=== PATIENT | female | born 1930 | race Caucasian/White ===

== ENCOUNTER 2018-01-02 18:07 | Inpatient (IN) | payer MEDICARE, OTHER ==
[2018-01-02] MEDS ORDERED: FENTANYL CITRATE INJ/PF 100 MCG/2 ML AMPUL IV PRN (18:30)
--- NOTE | 2018-01-02 18:55 | RADIOLOGY REPORT (SQ) ---
EXAM DESCRIPTION: FEMUR LEFT COMPLETED DATE/TIME: 01/02/2018 6:47 pm REASON FOR STUDY: fall COMPARISON: None. NUMBER OF VIEWS: Two views. TECHNIQUE: Two radiographic images acquired of the left femur to include hip and knee in at least on e projection. LIMITATIONS: None. FINDINGS: MINERALIZATION: Normal. BONES: Comminuted intertrochanteric fracture of the proximal femur with displacement and angulation. SOFT TISSUES: No obvious swelling or foreign body. OTHER: No other significant finding. IMPRESSION: COMMINUTED INTERTROCHANTERIC FRACTURE OF THE PROXIMAL FEMUR WITH DISPLACEMENT AND ANGULA TION TECHNICAL DOCUMENTATION: JOB ID: [id number] [employer]- All Rights Reserved Reading location - IP/workstation name: [email or web address]
--- NOTE | 2018-01-02 19:02 | ER Document Report ---
ED General - General Chief Complaint: Leg Injury Stated Complaint: FALL Time Seen by Provider: 01/02/18 18:29 Notes: Patient is an 87 year old female with a past medical history of atrial fibrillation status post pacemaker placement, chronic anticoagulation with warfarin who presents after a mechanical fall in which she fell on her left hip. Patient was apparently getting out of the vehicle after the family had arrived in the area for a vacation, stepped on a stone and fell to the ground. She did strike her head on a post while falling to the ground. She states immediately upon falling she developed a severe, constant, throbbing pain to her left hip. Any attempt at moving the hip or leg worsens the pain. She has received fentanyl with some improvement of the pain. No history of similar injury in the past. She has not had any focal weakness, numbness, vomiting or loss of consciousness since the fall. - Related Data Allergies/Adverse Reactions: No Known Allergies Allergy (Verified 01/02/18 21:28) Past Medical History - General Information source: Patient - Social History Smoking Status: Never Smoker Chew tobacco use (# tins/day): No Frequency of alcohol use: None Drug Abuse: None Lives with: Family Family History: Reviewed & Not Pertinent Patient has suicidal ideation: No Patient has homicidal ideation: No - Past Medical History Cardiac Medical History: Reports: Hx Atrial Fibrillation Renal/ Medical History: Denies: Hx Peritoneal Dialysis Past Surgical History: Reports: Hx Cardiac Surgery - pacemaker Review of Systems - Review of Systems Notes: Constitutional: Negative for fever. Eyes: Negative for visual changes. ENT: Negative for facial injury Cardiovascular: Negative for chest injury. Respiratory: Negative for shortness of breath. Gastrointestinal: Negative for abdominal injury. Genitourinary: Negative for genital injury Musculoskeletal: Positive for left lower extremity injury Skin: Negative for laceration/abrasions. Neurological: Positive for head injury. Physical Exam - Vital signs Vitals: Temp 97.9 F 01/02/18 18:22 Interpretation: Normal Notes: PHYSICAL EXAMINATION: GENERAL: Appears to be in pain but no acute distress HEAD: Atraumatic, normocephalic. EYES: Pupils equal round and reactive to light, extraocular movements intact, sclera anicteric, conjunctiva are normal. ENT: nares patent, no oral pharyngeal trauma. No hemotympanum, no Hollins's sign , no raccoon eyes. NECK: No midline cervical spine tenderness. Patient able to move their head to 45 bilaterally without any discomfort. LUNGS: Breath sounds clear to auscultation bilaterally and equal. No wheezes rales or rhonchi. HEART: Regular rate and rhythm without murmurs. CHEST WALL: No ecchymosis over the chest wall. ABDOMEN: Soft, nontender, normoactive bowel sounds. No guarding, no rebound. No abdominal bruising EXTREMITIES: Significant bruising and swelling to the lateral proximal aspect of the left femur region. There is exquisite pain on palpation of the area. Unable to perform hip range of motion testing due to pain on the left side. No additional extremity findings on exam with full range of motion throughout otherwise. BACK: No midline spinal tenderness, step-offs, or deformities. NEUROLOGICAL: Face symmetric. Tongue protrudes midline. Extraocular motions intact. Pupils are 2 mm and equally reactive. Normal speech, gait deferred. Sensation is grossly intact throughout. 5 out of 5 in the biceps and triceps bilaterally. Dorsi and plantar flexion 5 out of 5 bilaterally. PSYCH: Normal mood, normal affect. SKIN: Warm, Dry, normal turgor, bruising as above Course - Re-evaluation Re-evalutation: 01/02/18 18:59 Presentation of a well appearing elderly patient in no acute distress, vitals within normal limits after a mechanical fall. Patient denies a syncopal episode as the cause for today's fall. No focal neurologic deficits on exam, no evidence of basilar skull fracture on exam without evidence of hemotympanum, raccoon eyes, or periauricular hematoma. No papilledema. Patient is not on anticoagulation. GCS is 15. No loss of consciousness. No episodes of vomiting. However, based on patient's age a CT of the head has been obtained which is negative for any acute intracranial bleed. Likewise, patient was unable to be clinically cleared due to age by [place] cervical spine criteria. A CT of the cervical spine was also obtained and likewise is negative for any acute fracture. No indication for further imaging of the cervical spine. Patient has an obvious deformity and swelling of the left proximal femur and x- ray does show an intertrochanteric fracture with angulation and displacement which will require surgical repair. Chest and abdominal exam are benign without any focal tenderness, shortness of breath, or bruising over the chest or abdominal wall. Patient has no flank tenderness. Awaiting laboratories and then will discuss with the orthopedic surgeon and hospitalist for admission. 01/02/18 20:29 The remainder of extremity imaging unremarkable. Patient will be given oral vitamin K as she is anticoagulated on Coumadin. INR results are pending. I have discussed with Dr. Haley who requires the hospitalist to admit this patient. Dr. Goldstein has agreed. Patient and family updated on care plan and are agreeable. - Vital Signs Vital signs: Temp Pulse Resp BP Pulse Ox 98.0 F 70 16 126/71 H 98 01/02/18 22:42 01/03/18 02:00 01/02/18 22:42 01/02/18 22:42 01/02/18 22:42 - Laboratory Result Diagrams: 01/03/18 02:29 01/03/18 02:29 Laboratory results interpreted by me: 01/02/18 01/02/18 01/02/18 19:02 19:02 19:20 RBC 3.55 L Hgb 11.6 L Hct 33.5 L Plt Count 137 L Seg Neutrophils % 79.3 H Lymphocytes % 12.1 L PT 22.7 H BUN 27 H Glucose 122 H - Diagnostic Test Radiology reviewed: Image reviewed, Reports reviewed Radiology results interpreted by me: 01/02/18 19:02 Left femur: Intertrochanteric fracture with angulation and displacement - EKG Interpretation by Me Additional EKG results interpreted by me: 01/03/18 03:29 Atrially sensed ventricularly paced rhythm, rate 70 Discharge - Discharge Clinical Impression: Warfarin anticoagulation Fracture, intertrochanteric, left femur Qualifiers: Encounter type: initial encounter Fracture type: closed Fracture alignment: displaced Qualified Code(s): S72.142A - Displaced intertrochanteric fracture of left femur, initial encounter for closed fracture Fall Qualifiers: Encounter type: initial encounter Qualified Code(s): W19.XXXA - Unspecified fall, initial encounter Atrial fibrillation Qualifiers: Atrial fibrillation type: chronic Qualified Code(s): I48.2 - Chronic atrial fibrillation Condition: Fair Disposition: ADMITTED INPATIENT Admitting Provider: Hospitalist Unit Admitted: Telemetry
[2018-01-02 19:17] LABS: ABSOLUTE BASOPHILS # (AUTO) 0.1 10^3/uL (0.0-0.2); ABSOLUTE EOSINOPHILS # (AUTO) 0.1 10^3/uL (0.0-0.6); ABSOLUTE LYMPHOCYTES (AUTO) 1.1 10^3/uL (0.5-4.7); ABSOLUTE MONOCYTES (AUTO) 0.6 10^3/uL (0.1-1.4); BASOPHILS % (AUTO) 0.7 % (0-2); HEMATOCRIT 33.5 % (36.0-47.0); HEMOGLOBIN 11.6 g/dL (12.0-15.5); LYMPHOCYTES % (AUTO) 12.1 % (13-45); MEAN CORPUSCULAR HEMOGLOBIN 32.5 pg (27.0-33.4); MEAN CORPUSCULAR HGB CONC 34.5 g/dL (32.0-36.0); MEAN CORPUSCULAR VOLUME 94 fl (80-97); MONOCYTES % (AUTO) 6.9 % (3-13); PLATELET COUNT 137 10^3/uL (150-450); RED BLOOD COUNT 3.55 10^6/uL (3.72-5.28); RED CELL DISTRIBUTION WIDTH 13.5 % (11.5-14.0); SEGMENTED NEUTROPHILS % (AUTO) 79.3 % (42-78); TOTAL CELLS COUNTED % (AUTO) 100 %; WHITE BLOOD COUNT 8.9 10^3/uL (4.0-10.5)
[2018-01-02 19:35] LABS: ANION GAP 9 (5-19); BLOOD UREA NITROGEN 27 mg/dL (7-20); CALCIUM 9.1 mg/dL (8.4-10.2); CARBON DIOXIDE 28 mmol/L (22-30); CHLORIDE 104 mmol/L (98-107); GLUCOSE 122 mg/dL (75-110); POTASSIUM 4.5 mmol/L (3.6-5.0); SODIUM 140.7 mmol/L (137-145)
--- NOTE | 2018-01-02 19:52 | RADIOLOGY REPORT (SQ) ---
EXAM DESCRIPTION: CT HEAD WITHOUT COMPLETED DATE/TIME: 01/02/2018 7:21 pm REASON FOR STUDY: fall, trauma COMPARISON: None. TECHNIQUE: Axial images acquired through the brain without intravenous contrast. Images reviewed wi th bone, brain and subdural windows. Images stored on PACS. All CT scanners at this facility use dose modulation, iterative reconstruction, and/or weight based d osing when appropriate to reduce radiation dose to as low as reasonably achievable (ALARA). [facility]: Dose Right [facility]: CareDose [facility]: Dose Right [facility]: Teradose 4D [facility]: Smart [employer] RADIATION DOSE: CT Rad equipment meets quality standard of care and radiation dose reduction techniq ues were employed. CTDIvol: 53.2 mGy. DLP: 1044 mGy-cm. mGy. LIMITATIONS: None. FINDINGS: VENTRICLES: Normal size and contour. CEREBRUM: No mass effect. No hemorrhage. No midline shift. Normal liu/white matter differentiatio n. No evidence for acute territorial infarction. CEREBELLUM: No mass effect. No hemorrhage. No alteration of density. No evidence for acute infarct ion. EXTRAAXIAL SPACES: No fluid collections. ORBITS AND GLOBE: Symmetrical contour of the globes. CALVARIUM: No depressed skull fracture. PARANASAL SINUSES: No air-fluid level. SOFT TISSUES: No hematoma. IMPRESSION: No acute intracranial hemorrhage or depressed calvarial fracture. EVIDENCE OF ACUTE STROKE: NO. COMMENT: Quality ID # [id number]: Final reports with documentation of one or more dose reduction techniques (e.g., Automated exposure control, adjustment of the mA and/or kV according to patient size, use of iterative reconstruction technique) TECHNICAL DOCUMENTATION: JOB ID: [id number] 2010 [employer]- All Rights Reserved Reading location - IP/workstation name: [email or web address]
--- NOTE | 2018-01-02 20:02 | RADIOLOGY REPORT (SQ) ---
EXAM DESCRIPTION: CT CERVICAL SPINE WITHOUT COMPLETED DATE/TIME: 01/02/2018 7:21 pm REASON FOR STUDY: fall, trauma COMPARISON: None. TECHNIQUE: Axial images acquired through the cervical spine without intravenous contrast. Images re viewed with lung, soft tissue and bone windows. Reconstructed coronal and sagittal MPR images review ed. Images stored on PACS. All CT scanners at this facility use dose modulation, iterative reconstruction, and/or weight based d osing when appropriate to reduce radiation dose to as low as reasonably achievable (ALARA). [facility]: Dose Right [facility]: CareDose [facility]: Dose Right [facility]: Teradose 4D [facility]: Smart [employer] RADIATION DOSE: CT Rad equipment meets quality standard of care and radiation dose reduction techniq ues were employed. CTDIvol: 12.0 mGy. DLP: 240 mGy-cm. mGy. LIMITATIONS: None. FINDINGS: ALIGNMENT: There is mild retrolisthesis of C3 on C4 and of C4 on C5. MINERALIZATION: Normal. VERTEBRAL BODIES: No fractures or dislocation. DISCS: Multilevel disc space narrowing with osteophytes. FACETS, LATERAL MASSES, POSTERIOR ELEMENTS: Facet arthropathy. No fractures. No dislocation. No ac alison findings. HARDWARE: None in the spine. VISUALIZED RIBS: No fractures. LUNG APICES AND SOFT TISSUES: No acute findings. There is a 1.4 cm hypodense nodule at the left lobe of the thyroid gland. There is a 7 mm calcification at the left lobe of the thyroid gland. IMPRESSION: 1. No acute fracture at the thoracic cervical spine. Multilevel degenerative changes. 2. A 1.4 cm hypodense nodule at the left lobe of the thyroid gland. This can be better evaluated [facility] dedicated ultrasound. TECHNICAL DOCUMENTATION: JOB ID: [id number] Quality ID # [id number]: Final reports with documentation of one or more dose reduction techniques (e.g., Au tomated exposure control, adjustment of the mA and/or kV according to patient size, use of iterative reconstruction technique) 2010 [employer]- All Rights Reserved Reading location - IP/workstation name: [email or web address]
[2018-01-02] MEDS ORDERED: PHYTONADIONE 5 MG TABLET PO ONE (20:26)
--- NOTE | 2018-01-02 20:26 | RADIOLOGY REPORT (SQ) ---
EXAM DESCRIPTION: PELVIS AP COMPLETED DATE/TIME: 01/02/2018 7:22 pm REASON FOR STUDY: fall, trauma COMPARISON: Left femur x-ray 01/02/2018. NUMBER OF VIEWS: One view TECHNIQUE: AP Pelvis LIMITATIONS: None. FINDINGS: There is diffuse osteopenia. Redemonstration of displaced, comminuted, intertrochanteric fracture of the proximal left femur with varus angulation. Severe degenerative changes are seen at t he right hip with loss of joint space and subchondral sclerosis. The pelvic ring is partially obscur ed by overlying bowel loops, appears intact. IMPRESSION: Displaced, intertrochanteric fracture of the proximal left femur. Severe degenerative c hanges at the right hip. Osteopenia. TECHNICAL DOCUMENTATION: JOB ID: [id number] 2010 [employer]- All Rights Reserved Reading location - IP/workstation name: [email or web address]
[2018-01-02] MEDS ORDERED: MAGNESIUM HYDROXIDE SUSP 30 ML UDCUP PO PRN (20:28)
[2018-01-02] MEDS ORDERED: MAG HYDROX/AL HYDROX/SIMETH SUSP 30 ML UDCUP PO PRN (20:28)
[2018-01-02] MEDS ORDERED: IPRATROPIUM/ALBUTEROL 0.5-2.5 MG/3 ML AMPUL NEB PRN (20:28)
--- NOTE | 2018-01-02 20:31 | RADIOLOGY REPORT (SQ) ---
EXAM DESCRIPTION: CHEST SINGLE VIEW COMPLETED DATE/TIME: 01/02/2018 7:32 pm REASON FOR STUDY: pre-op. Intertrochanteric fracture at the proximal left femur. COMPARISON: None. EXAM PARAMETERS: NUMBER OF VIEWS: One view. TECHNIQUE: Single frontal radiographic view of the chest acquired. RADIATION DOSE: NA LIMITATIONS: None. FINDINGS: LUNGS AND PLEURA: No consolidation, pleural effusion or pneumothorax. Hyperlucent lungs a re suggestive of emphysema. MEDIASTINUM AND HILAR STRUCTURES: No masses. Contour normal. HEART AND VASCULAR STRUCTURES: The heart is enlarged. There is no overt vascular congestion. BONES: No acute findings. HARDWARE: There is a right-sided pacemaker. IMPRESSION: Cardiomegaly. Emphysema. No consolidation or pleural effusion. TECHNICAL DOCUMENTATION: JOB ID: [id number] 2010 [employer]- All Rights Reserved Reading location - IP/workstation name: [email or web address]
[2018-01-02 20:56] LABS: PROTHROMBIN TIME 22.7 SEC (11.4-15.4)
[2018-01-02 21:32] LABS: CREATINE KINASE MB 0.86 ng/mL (<4.55)
[2018-01-02 21:37] LABS: TROPONIN I < 0.012 ng/mL
[2018-01-02] MEDS: NORMAL SALINE 1000 ML 1,000 ML IV PRN ×2 (21:44→22:57)
[2018-01-02] MEDS: FENTANYL CITRATE INJ/PF 100 MCG/2 ML AMPUL IV PRN (22:57)
[2018-01-02] MEDS: HEPARIN SOD (PORCINE) 5,000 UNIT/ML 1 ML SYRINGE SUBCUT SCH (22:58)
[2018-01-03 02:40] LABS: ABSOLUTE LYMPHOCYTES (AUTO) 0.9 10^3/uL (0.5-4.7); ABSOLUTE MONOCYTES (AUTO) 0.6 10^3/uL (0.1-1.4); ABSOLUTE NEUT (AUTO) 6.6 10^3/uL (1.7-8.2); BASOPHILS % (AUTO) 0.5 % (0-2); EOSINOPHILS % (AUTO) 0.1 % (0-6); HEMATOCRIT 29.2 % (36.0-47.0); LYMPHOCYTES % (AUTO) 11.4 % (13-45); MEAN CORPUSCULAR HGB CONC 34.1 g/dL (32.0-36.0); MEAN CORPUSCULAR VOLUME 94 fl (80-97); MONOCYTES % (AUTO) 7.3 % (3-13); PLATELET COUNT 115 10^3/uL (150-450); RED BLOOD COUNT 3.11 10^6/uL (3.72-5.28); SEGMENTED NEUTROPHILS % (AUTO) 80.7 % (42-78); TOTAL CELLS COUNTED % (AUTO) 100 %; WHITE BLOOD COUNT 8.2 10^3/uL (4.0-10.5)
[2018-01-03 03:13] LABS: ANION GAP 6 (5-19); BLOOD UREA NITROGEN 23 mg/dL (7-20); CALCIUM 8.3 mg/dL (8.4-10.2); CARBON DIOXIDE 28 mmol/L (22-30); CHLORIDE 105 mmol/L (98-107); GLUCOSE 135 mg/dL (75-110); POTASSIUM 4.5 mmol/L (3.6-5.0); SODIUM 138.6 mmol/L (137-145)
[2018-01-03] MEDS: FENTANYL CITRATE INJ/PF 100 MCG/2 ML AMPUL IV PRN ×8 (03:22→21:35)
[2018-01-03 03:23] LABS: CREATINE KINASE MB 0.65 ng/mL (<4.55)
[2018-01-03] MEDS: NORMAL SALINE 1000 ML 1,000 ML IV PRN (03:24)
[2018-01-03 03:28] LABS: TROPONIN I < 0.012 ng/mL
--- NOTE | 2018-01-03 04:52 | PDOC H&P ---
History of Present Illness Admission Date/PCP: 01/02/18 20:46 Patient complains of: Left hip pain History of Present Illness: ROSALBA DE LEON is a 87 year old female with past medical history of osteoarthritis, atrial fibrillation status post pacemaker placement on Coumadin. She presents after a mechanical fall to her left hip resulting in intractable pain and deformity. Patient did lightly strike her head against a post during her fall. No loss of consciousness, nausea or vomiting, dizziness, blurred vision or confusion. She denies recent illness, medication changes and otherwise feels well. She ambulates 2 miles per day, dozens of flights of stairs per day and not limited by shortness of breath or chest pain. Past Medical History Cardiac Medical History: Reports: Atrial Fibrillation Pulmonary Medical History: Reports: None EENT Medical History: Reports: None Neurological Medical History: Reports: None Endocrine Medical History: Reports: None Renal/ Medical History: Reports: None Malignancy Medical History: Reports: None GI Medical History: Reports: None Musculoskeltal Medical History: Reports: Arthritis Skin Medical History: Reports: None Psychiatric Medical History: Reports: None Traumatic Medical History: Reports: None Hematology: Reports: None Infectious Medical History: Reports: None Past Surgical History Past Surgical History: Reports: None Social History Information Source: Patient, [facility] Records Lives with: Family Smoking Status: Never Smoker Frequency of Alcohol Use: None Hx Recreational Drug Use: No Drugs: None Hx Prescription Drug Abuse: No - Advance Directive Resuscitation Status: Full Code Family History Family History: None Parental Family History Reviewed: Yes Children Family History Reviewed: Yes Sibling(s) Family History Reviewed.: Yes Medication/Allergy Home Medications: Amiodarone HCl [Cordarone 200 mg Tablet] 200 mg PO QHS 01/02/18 Carvedilol [Coreg 6.25 mg Tablet] 6.25 mg PO Q12 01/02/18 Lisinopril [Prinivil 2.5 mg Tablet] 2.5 mg PO DAILY 01/02/18 Tolterodine Tartrate [Detrol LA] 2 mg PO QHS 01/02/18 Warfarin Sodium 2 mg PO ASDIR 01/02/18 Allergies/Adverse Reactions: No Known Allergies Allergy (Verified 01/02/18 21:28) Review of Systems Constitutional: ABSENT: chills, fever(s), headache(s), weight gain, weight loss Eyes: ABSENT: visual disturbances Ears: ABSENT: hearing changes Cardiovascular: ABSENT: chest pain, dyspnea on exertion, edema, orthropnea, palpitations Respiratory: ABSENT: cough, hemoptysis Gastrointestinal: ABSENT: abdominal pain, constipation, diarrhea, hematemesis, hematochezia, nausea, vomiting Genitourinary: ABSENT: dysuria, hematuria Musculoskeletal: ABSENT: joint swelling Integumentary: ABSENT: rash, wounds Neurological: ABSENT: abnormal gait, abnormal speech, confusion, dizziness, focal weakness, syncope Psychiatric: ABSENT: anxiety, depression, homidical ideation, suicidal ideation Endocrine: ABSENT: cold intolerance, heat intolerance, polydipsia, polyuria Hematologic/Lymphatic: ABSENT: easy bleeding, easy bruising Physical Exam Vital Signs: Temp Pulse Resp BP Pulse Ox 97.8 F 73 16 105/47 L 95 01/03/18 03:44 01/03/18 03:44 01/03/18 03:44 01/03/18 03:44 01/03/18 03:44 Intake & Output 01/01/18 01/02/18 01/03/18 11:59 11:59 11:59 Output Total 0 Balance 0 Weight 66.4 kg General appearance: PRESENT: cooperative, mild distress. ABSENT: disheveled, hard of hearing Head exam: PRESENT: atraumatic, normocephalic Eye exam: PRESENT: conjunctiva pink, EOMI, PERRLA. ABSENT: scleral icterus Ear exam: PRESENT: normal external ear exam Mouth exam: PRESENT: moist, tongue midline Neck exam: ABSENT: carotid bruit, JVD, lymphadenopathy, thyromegaly Respiratory exam: PRESENT: clear to auscultation vika. ABSENT: rales, rhonchi, wheezes Cardiovascular exam: PRESENT: systolic murmur - Known to patient, other - Paced rhythm. ABSENT: clicks, diastolic murmur, gallop Pulses: PRESENT: normal dorsalis pedis pul Vascular exam: PRESENT: normal capillary refill GI/Abdominal exam: PRESENT: normal bowel sounds, soft. ABSENT: distended, guarding, mass, organolmegaly, rebound, tenderness Rectal exam: PRESENT: deferred Extremities exam: PRESENT: tenderness, other - Left leg externally rotated and short. ABSENT: calf tenderness, full ROM, +1 edema Neurological exam: PRESENT: alert, awake, oriented to person, oriented to place , oriented to time, oriented to situation, CN II-XII grossly intact. ABSENT: motor sensory deficit Psychiatric exam: PRESENT: appropriate affect, normal mood. ABSENT: homicidal ideation, suicidal ideation Skin exam: PRESENT: dry, intact, warm. ABSENT: cyanosis, rash Results Laboratory Results: 01/03/18 02:29 01/03/18 02:29 01/03/18 01/03/18 02:29 02:29 WBC 8.2 RBC 3.11 L Hgb 10.0 L Hct 29.2 L MCV 94 MCH 32.0 MCHC 34.1 RDW 13.0 Plt Count 115 L Seg Neutrophils % 80.7 H Lymphocytes % 11.4 L Monocytes % 7.3 Eosinophils % 0.1 Basophils % 0.5 Absolute Neutrophils 6.6 Absolute Lymphocytes 0.9 Absolute Monocytes 0.6 Absolute Eosinophils 0.0 Absolute Basophils 0.0 Sodium 138.6 Potassium 4.5 Chloride 105 Carbon Dioxide 28 Anion Gap 6 BUN 23 H Creatinine 0.68 Est GFR ( Amer) > 60 Est GFR (Non-Af Amer) > 60 Glucose 135 H Calcium 8.3 L 01/03/18 01/03/18 02:29 02:29 Creatine Kinase 49 CK-MB (CK-2) 0.65 Troponin I < 0.012 Impressions: Femur X-Ray 01/02/18 18:13 IMPRESSION: COMMINUTED INTERTROCHANTERIC FRACTURE OF THE PROXIMAL FEMUR WITH DISPLACEMENT AND ANGULATION Cervical Spine CT 01/02/18 18:57 IMPRESSION: 1. No acute fracture at the thoracic cervical spine. Multilevel degenerative changes. 2. A 1.4 cm hypodense nodule at the left lobe of the thyroid gland. This can be better evaluated with dedicated ultrasound. Head CT 01/02/18 18:57 IMPRESSION: No acute intracranial hemorrhage or depressed calvarial fracture. EVIDENCE OF ACUTE STROKE: NO. Pelvis X-Ray 01/02/18 18:57 IMPRESSION: Displaced, intertrochanteric fracture of the proximal left femur. Severe degenerative changes at the right hip. Osteopenia. Chest X-Ray 01/02/18 19:26 IMPRESSION: Cardiomegaly. Emphysema. No consolidation or pleural effusion. Assessment & Plan - Diagnosis (1) Atrial fibrillation Qualifiers: Atrial fibrillation type: chronic Qualified Code(s): I48.2 - Chronic atrial fibrillation Is this a current diagnosis for this admission?: Yes Plan: Paced rhythm, continue amiodarone, hold anticoagulation for surgery. (2) Fall Qualifiers: Encounter type: initial encounter Qualified Code(s): W19.XXXA - Unspecified fall, initial encounter Is this a current diagnosis for this admission?: Yes Plan: Mechanical fall stepping up on unstable ground. (3) Fracture, intertrochanteric, left femur Qualifiers: Encounter type: initial encounter Fracture type: closed Fracture alignment: displaced Qualified Code(s): S72.142A - Displaced intertrochanteric fracture of left femur, initial encounter for closed fracture Is this a current diagnosis for this admission?: Yes Plan: Minimal risk for cardiopulmonary complication of orthopedic surgery given outstanding underlying fitness. No modifiable risk factors. (4) Warfarin anticoagulation Is this a current diagnosis for this admission?: Yes Plan: Subtherapeutic INR 1.9 patient has received vitamin K in the emergency room, follow-up a.m. INR. - Time Time Spent: 50 to 70 Minutes - Inpatient Certification Medical Necessity: Need Close Monitoring Due to Risk of Patient Decompensation
[2018-01-03] MEDS: HEPARIN SOD (PORCINE) 5,000 UNIT/ML 1 ML SYRINGE SUBCUT SCH ×3 (05:50→21:25)
--- NOTE | 2018-01-03 07:14 | PDOC CONSULTATION ---
Consultation Consult Date: 01/03/18 Consult reason:: Left hip fracture History of Present Illness Admission Date/PCP: 01/02/18 20:46 History of Present Illness: ROSALBA DE LEON is a 87 year old female The patient is an 87-year-old white female with past medical history notable for atrial fibrillation and chronic anticoagulation who fell yesterday and sustained a left hip injury. She is unable to ambulate. She is brought to the emergency room. X-rays in the emergency room demonstrate a displaced left intratrochanteric femur fracture. Past Medical History Cardiac Medical History: Reports: Atrial Fibrillation Pulmonary Medical History: Reports: None EENT Medical History: Reports: None Neurological Medical History: Reports: None Endocrine Medical History: Reports: None Renal/ Medical History: Reports: None Malignancy Medical History: Reports: None GI Medical History: Reports: None Musculoskeltal Medical History: Reports: Arthritis Skin Medical History: Reports: None Psychiatric Medical History: Reports: None Traumatic Medical History: Reports: None Hematology: Reports: None Infectious Medical History: Reports: None Past Surgical History Past Surgical History: Reports: None Social History Information Source: Patient, [facility] Records Lives with: Family Smoking Status: Never Smoker Frequency of Alcohol Use: None Hx Recreational Drug Use: No Drugs: None Hx Prescription Drug Abuse: No - Advance Directive Resuscitation Status: Full Code Family History Family History: None Parental Family History Reviewed: No Children Family History Reviewed: No Sibling(s) Family History Reviewed.: No Medication/Allergy Home Medications: Amiodarone HCl [Cordarone 200 mg Tablet] 200 mg PO QHS 01/02/18 Carvedilol [Coreg 6.25 mg Tablet] 6.25 mg PO Q12 01/02/18 Lisinopril [Prinivil 2.5 mg Tablet] 2.5 mg PO DAILY 01/02/18 Tolterodine Tartrate [Detrol LA] 2 mg PO QHS 01/02/18 Warfarin Sodium 2 mg PO ASDIR 01/02/18 Allergies/Adverse Reactions: No Known Allergies Allergy (Verified 01/02/18 21:28) Review of Systems All systems: as per [facility] Physical Exam Vital Signs: Temp Pulse Resp BP Pulse Ox 36.6 C 73 16 105/47 L 95 01/03/18 03:44 01/03/18 03:44 01/03/18 03:44 01/03/18 03:44 01/03/18 03:44 Intake & Output 01/02/18 01/03/18 01/04/18 06:59 06:59 06:59 Intake Total 1064 Output Total 200 Balance 864 Weight 66.4 kg Physical Exam: The patient is an elderly somewhat frail-appearing white female lying in hospital bed. She is alert oriented and appropriate. General appearance: PRESENT: no acute distress, mild distress Head exam: PRESENT: normocephalic Respiratory exam: PRESENT: unlabored Cardiovascular exam: PRESENT: RRR Pulses: PRESENT: +1 pedal pulses bilateral Vascular exam: PRESENT: normal capillary refill GI/Abdominal exam: PRESENT: soft Rectal exam: PRESENT: deferred Extremities exam: PRESENT: other - Left lower extremity ecchymosis. Leg length inequality. Rotational deformity. Brisk capillary refill. Sensory examination is intact to light touch. Neurological exam: PRESENT: alert, awake, oriented to person, oriented to place , oriented to time, oriented to situation. ABSENT: motor sensory deficit Psychiatric exam: PRESENT: appropriate affect, normal mood. ABSENT: homicidal ideation, suicidal ideation Skin exam: PRESENT: dry, intact, warm. ABSENT: cyanosis, rash Results Laboratory Results: 01/03/18 02:29 01/03/18 02:29 01/03/18 01/03/18 02:29 02:29 WBC 8.2 RBC 3.11 L Hgb 10.0 L Hct 29.2 L MCV 94 MCH 32.0 MCHC 34.1 RDW 13.0 Plt Count 115 L Seg Neutrophils % 80.7 H Lymphocytes % 11.4 L Monocytes % 7.3 Eosinophils % 0.1 Basophils % 0.5 Absolute Neutrophils 6.6 Absolute Lymphocytes 0.9 Absolute Monocytes 0.6 Absolute Eosinophils 0.0 Absolute Basophils 0.0 Sodium 138.6 Potassium 4.5 Chloride 105 Carbon Dioxide 28 Anion Gap 6 BUN 23 H Creatinine 0.68 Est GFR ( Amer) > 60 Est GFR (Non-Af Amer) > 60 Glucose 135 H Calcium 8.3 L 01/03/18 01/03/18 02:29 02:29 Creatine Kinase 49 CK-MB (CK-2) 0.65 Troponin I < 0.012 Impressions: Femur X-Ray 01/02/18 18:13 IMPRESSION: COMMINUTED INTERTROCHANTERIC FRACTURE OF THE PROXIMAL FEMUR WITH DISPLACEMENT AND ANGULATION Cervical Spine CT 01/02/18 18:57 IMPRESSION: 1. No acute fracture at the thoracic cervical spine. Multilevel degenerative changes. 2. A 1.4 cm hypodense nodule at the left lobe of the thyroid gland. This can be better evaluated with dedicated ultrasound. Head CT 01/02/18 18:57 IMPRESSION: No acute intracranial hemorrhage or depressed calvarial fracture. EVIDENCE OF ACUTE STROKE: NO. Pelvis X-Ray 01/02/18 18:57 IMPRESSION: Displaced, intertrochanteric fracture of the proximal left femur. Severe degenerative changes at the right hip. Osteopenia. Chest X-Ray 01/02/18 19:26 IMPRESSION: Cardiomegaly. Emphysema. No consolidation or pleural effusion. Status: Imported from PACS Assessment & Plan - Diagnosis (1) Atrial fibrillation Qualifiers: Atrial fibrillation type: chronic Qualified Code(s): I48.2 - Chronic atrial fibrillation Is this a current diagnosis for this admission?: Yes Plan: Patient on chronic anticoagulation. She received vitamin K yesterday in the emergency room. Most recent INR is 1.9. This will be repeated today. (2) Fracture, intertrochanteric, left femur Qualifiers: Encounter type: initial encounter Fracture type: closed Fracture alignment: displaced Qualified Code(s): S72.142A - Displaced intertrochanteric fracture of left femur, initial encounter for closed fracture Is this a current diagnosis for this admission?: Yes Plan: Patient would best served with an open reduction internal fixation of the left intratrochanteric femur fracture under regional anesthetic. Induction of her regional regional anesthetic will require improvement in her INR at least below 1.5. The surgery itself will take approximately 30 minutes with 100 cc blood loss. The patient can be weightbearing as tolerated postop. We will proceed with the surgical intervention pending medical clearance, correction of anticoagulation, and or availability. - Time Time Spent: 50 to 70 Minutes Anticipated discharge: SNF Within: Other
[2018-01-03 08:46] LABS: INTERNATIONAL RATION (INR) 1.84; PROTHROMBIN TIME 22.2 SEC (11.4-15.4)
[2018-01-03 08:47] LABS: PARTIAL THROMBOPLASTIN TIME 34.8 SEC (23.5-35.8)
[2018-01-03 09:06] LABS: CREATINE KINASE MB 0.57 ng/mL (<4.55)
[2018-01-03 09:08] LABS: TROPONIN I < 0.012 ng/mL
[2018-01-03] MEDS: RINGERS SOLUTION,LACTATED 1,000 ML IV PRN ×2 (09:11→18:27)
[2018-01-03] MEDS: DOCUSATE SODIUM 100 MG CAPSULE PO SCH ×2 (09:11→17:13)
--- NOTE | 2018-01-03 09:57 | EKG REPORT ---
SEVERITY:- ABNORMAL ECG - A-V DUAL-PACED RHYTHM WITH SOME INHIBITION : Confirmed by: Will Mantilla 03-Jan-2018 09:56:12
[2018-01-03] MEDS ORDERED: LIDOCAINE 4% TOPICAL SOLN 50 ML TP ONE (15:00)
--- NOTE | 2018-01-03 17:21 | PDOC PROGRESS REPORT ---
Subjective Progress Note for:: 01/03/18 Subjective:: The patient is an 87-year-old female with a past medical history significant for arthritis, atrial fibrillation status post pacemaker placement on Coumadin who was admitted on 01/02/18 for left hip fracture secondary to mechanical fall. Patient is seen on morning rounds. She is found resting in bed comfortably on room air with her family present. She states that her pain has been well controlled today. She does note that she has some tenderness to her left thumb , however, she has full range of motion and there is no deformity, ecchymosis, edema. She asks for cream to assist with her discomfort here. She denies headache, dizziness, chest pain, palpitations, dyspnea, abdominal pain, nausea vomiting diarrhea. She is hopeful that her INR will be corrected well enough for her to have her hip repaired tomorrow. She also asks about the possibility for discharge to acute rehabilitation facility located in [facility]. She is advised to discuss this with the orthopedic team and discharge planners. They have no other questions or concerns at this time. Reason For Visit: HIP FRACTURE, AFIB Physical Exam Vital Signs: Temp Pulse Resp BP Pulse Ox 99 F 91 12 95/43 L 99 01/03/18 16:00 01/03/18 16:19 01/03/18 16:19 01/03/18 16:00 01/03/18 16:19 Intake & Output 01/02/18 01/03/18 01/04/18 06:59 06:59 06:59 Intake Total 1064 Output Total 200 Balance 864 Weight 66.4 kg General appearance: PRESENT: no acute distress, cooperative, well-developed, well-nourished Head exam: PRESENT: atraumatic, normocephalic Eye exam: PRESENT: conjunctiva pink, EOMI, PERRLA. ABSENT: scleral icterus Ear exam: PRESENT: normal external ear exam Mouth exam: PRESENT: moist, tongue midline Neck exam: ABSENT: carotid bruit, JVD, lymphadenopathy, thyromegaly Respiratory exam: PRESENT: clear to auscultation vika, symmetrical, unlabored. ABSENT: rales, rhonchi, wheezes Cardiovascular exam: PRESENT: irregular rhythm, +S1, +S2. ABSENT: diastolic murmur, rubs, systolic murmur Pulses: PRESENT: normal dorsalis pedis pul Vascular exam: PRESENT: normal capillary refill GI/Abdominal exam: PRESENT: normal bowel sounds, soft. ABSENT: distended, guarding, mass, organolmegaly, rebound, tenderness Rectal exam: PRESENT: deferred Extremities exam: PRESENT: other - Tenderness and limited range of motion LLE. ABSENT: calf tenderness, clubbing, full ROM, pedal edema Neurological exam: PRESENT: alert, awake, oriented to person, oriented to place , oriented to time, oriented to situation, CN II-XII grossly intact. ABSENT: motor sensory deficit Psychiatric exam: PRESENT: appropriate affect, normal mood. ABSENT: homicidal ideation, suicidal ideation Skin exam: PRESENT: dry, intact, warm. ABSENT: cyanosis, rash Results Laboratory Results: 01/03/18 02:29 01/03/18 02:29 01/03/18 01/03/18 02:29 02:29 WBC 8.2 RBC 3.11 L Hgb 10.0 L Hct 29.2 L MCV 94 MCH 32.0 MCHC 34.1 RDW 13.0 Plt Count 115 L Seg Neutrophils % 80.7 H Lymphocytes % 11.4 L Monocytes % 7.3 Eosinophils % 0.1 Basophils % 0.5 Absolute Neutrophils 6.6 Absolute Lymphocytes 0.9 Absolute Monocytes 0.6 Absolute Eosinophils 0.0 Absolute Basophils 0.0 Sodium 138.6 Potassium 4.5 Chloride 105 Carbon Dioxide 28 Anion Gap 6 BUN 23 H Creatinine 0.68 Est GFR ( Amer) > 60 Est GFR (Non-Af Amer) > 60 Glucose 135 H Calcium 8.3 L 01/03/18 01/03/18 01/03/18 02:29 02:29 08:00 Creatine Kinase 49 49 CK-MB (CK-2) 0.65 Troponin I < 0.012 01/03/18 08:00 Creatine Kinase CK-MB (CK-2) 0.57 Troponin I < 0.012 Impressions: Femur X-Ray 01/02/18 18:13 IMPRESSION: COMMINUTED INTERTROCHANTERIC FRACTURE OF THE PROXIMAL FEMUR WITH DISPLACEMENT AND ANGULATION Cervical Spine CT 01/02/18 18:57 IMPRESSION: 1. No acute fracture at the thoracic cervical spine. Multilevel degenerative changes. 2. A 1.4 cm hypodense nodule at the left lobe of the thyroid gland. This can be better evaluated with dedicated ultrasound. Head CT 01/02/18 18:57 IMPRESSION: No acute intracranial hemorrhage or depressed calvarial fracture. EVIDENCE OF ACUTE STROKE: NO. Pelvis X-Ray 01/02/18 18:57 IMPRESSION: Displaced, intertrochanteric fracture of the proximal left femur. Severe degenerative changes at the right hip. Osteopenia. Chest X-Ray 01/02/18 19:26 IMPRESSION: Cardiomegaly. Emphysema. No consolidation or pleural effusion. Assessment & Plan - Diagnosis (1) Fracture, intertrochanteric, left femur Qualifiers: Encounter type: initial encounter Fracture type: closed Fracture alignment: displaced Qualified Code(s): S72.142A - Displaced intertrochanteric fracture of left femur, initial encounter for closed fracture Is this a current diagnosis for this admission?: Yes Plan: Left femur fracture status post mechanical fall. Minimal risk for cardiopulmonary complications of orthopedic surgery given the patient's underlying fitness (reports that she ambulate 2 miles daily). Trending PT/INR; goal for INR of less than 1.4 prior to surgery. Orthopedics has been consulted; appreciate their assistance. Anticipate INR will be corrected after the patient to proceed to the OR tomorrow. Pain is well-controlled with as needed Tylenol and IV fentanyl. Antiemetics as needed. PT/OT at orthopedics discretion. Discharge planning has been consulted; anticipate need for acute rehabilitation at discharge. (2) Atrial fibrillation Qualifiers: Atrial fibrillation type: chronic Qualified Code(s): I48.2 - Chronic atrial fibrillation Is this a current diagnosis for this admission?: Yes Plan: Paced and rate controlled rhythm. Patient's home medications reviewed with the exception of Coumadin. (3) Warfarin anticoagulation Is this a current diagnosis for this admission?: Yes Plan: On arrival, the patient's INR was subtherapeutic at 1.9. She received vitamin K 5 mg p.o. in the emergency department. INR minimally improved today; 1.8. Patient is encouraged to eat green leafy vegetables (patient reports that she enjoys spinach, collards) at dinner. Will continue to trend. (4) Fall Qualifiers: Encounter type: initial encounter Qualified Code(s): W19.XXXA - Unspecified fall, initial encounter Is this a current diagnosis for this admission?: Yes Plan: Mechanical fall secondary to stepping on unstable ground. Primary plan as above. - Time Time Spent with patient: 15-24 minutes Medications reviewed and adjusted accordingly: Yes Anticipated discharge: Acute Rehab - Patient requesting arrangements be made for her to have acute rehabilitation in [facility] (the patient is in town for a vacation, her family members are returning to [place] in 1 week). Within: Other - At discretion of orthopedic team. - Inpatient Certification Medical Necessity: Need for Surgery
[2018-01-03] MEDS: TOLTERODINE TARTRATE 1 MG TABLET PO SCH (21:29)
[2018-01-03] MEDS: CARVEDILOL 6.25 MG TABLET PO SCH (21:31)
[2018-01-04] MEDS: FENTANYL CITRATE INJ/PF 100 MCG/2 ML AMPUL IV PRN ×4 (00:02→08:40)
[2018-01-04] MEDS: RINGERS SOLUTION,LACTATED 1,000 ML IV PRN (02:01)
[2018-01-04] MEDS: HEPARIN SOD (PORCINE) 5,000 UNIT/ML 1 ML SYRINGE SUBCUT SCH ×3 (04:40→22:06)
[2018-01-04 07:45] LABS: ABSOLUTE EOSINOPHILS # (AUTO) 0.1 10^3/uL (0.0-0.6); ABSOLUTE LYMPHOCYTES (AUTO) 1.4 10^3/uL (0.5-4.7); ABSOLUTE MONOCYTES (AUTO) 1.1 10^3/uL (0.1-1.4); ABSOLUTE NEUT (AUTO) 5.8 10^3/uL (1.7-8.2); BASOPHILS % (AUTO) 0.4 % (0-2); EOSINOPHILS % (AUTO) 0.9 % (0-6); HEMATOCRIT 27.1 % (36.0-47.0); HEMOGLOBIN 9.3 g/dL (12.0-15.5); LYMPHOCYTES % (AUTO) 16.4 % (13-45); MEAN CORPUSCULAR HEMOGLOBIN 32.6 pg (27.0-33.4); MEAN CORPUSCULAR HGB CONC 34.5 g/dL (32.0-36.0); MEAN CORPUSCULAR VOLUME 94 fl (80-97); MONOCYTES % (AUTO) 13.2 % (3-13); PLATELET COUNT 108 10^3/uL (150-450); RED BLOOD COUNT 2.87 10^6/uL (3.72-5.28); SEGMENTED NEUTROPHILS % (AUTO) 69.1 % (42-78); TOTAL CELLS COUNTED % (AUTO) 100 %; WHITE BLOOD COUNT 8.4 10^3/uL (4.0-10.5)
[2018-01-04 08:01] LABS: INTERNATIONAL RATION (INR) 1.41
[2018-01-04 08:02] LABS: PARTIAL THROMBOPLASTIN TIME 31.2 SEC (23.5-35.8)
[2018-01-04 08:03] LABS: ANION GAP 7 (5-19); BLOOD UREA NITROGEN 11 mg/dL (7-20); CALCIUM 8.2 mg/dL (8.4-10.2); CARBON DIOXIDE 28 mmol/L (22-30); CHLORIDE 100 mmol/L (98-107); GLUCOSE 101 mg/dL (75-110); POTASSIUM 4.4 mmol/L (3.6-5.0); SODIUM 134.5 mmol/L (137-145)
[2018-01-04] MEDS: ACETAMINOPHEN 325 MG TABLET PO PRN (09:05)
[2018-01-04] MEDS: LISINOPRIL 5 MG TABLET PO SCH (09:09)
[2018-01-04] MEDS: TOLTERODINE TARTRATE 1 MG TABLET PO SCH ×2 (09:19→22:08)
[2018-01-04] MEDS ORDERED: TOLTERODINE TARTRATE 2 MG PO SCH (10:00)
[2018-01-04] MEDS ORDERED: (PENDING PHARMACY ID) (Lisinopril [Prinivil 2.5 Mg Tablet] 2.5 MG) PO SCH (10:00)
[2018-01-04] MEDS: CARVEDILOL 6.25 MG TABLET PO SCH ×2 (10:10→22:08)
[2018-01-04] MEDS: AMIODARONE HCL 200 MG TABLET PO SCH (10:10)
[2018-01-04] MEDS: DOCUSATE SODIUM 100 MG CAPSULE PO SCH ×2 (10:11→17:30)
[2018-01-04] MEDS ORDERED: CEFAZOLIN INJ 1 GM VIAL ONE (12:20)
[2018-01-04] MEDS ORDERED: MIDAZOLAM 2 MG/2 ML INJ ONE ×2 (12:44→12:46)
[2018-01-04] MEDS ORDERED: FENTANYL CITRATE INJ/PF 100 MCG/2 ML AMPUL ONE ×3 (12:44→12:46)
[2018-01-04] MEDS ORDERED: ACETAMINOPHEN 0 MG/0 ML RTUPB IV ONE (12:44)
[2018-01-04] MEDS ORDERED: PROPOFOL INJ 200 MG/20 ML VIAL IV ONE ×2 (12:44→12:46)
[2018-01-04] MEDS ORDERED: ACETAMINOPHEN 1,000 MG/100 ML RTUPB IV ONE (12:46)
[2018-01-04] MEDS ORDERED: MORPHINE SULFATE 10 MG/ML INJ ONE (12:47)
[2018-01-04] MEDS ORDERED: PROMETHAZINE HCL INJ 25 MG/1 ML VIAL IV PRN ×2 (13:53)
[2018-01-04] MEDS ORDERED: OXYCODONE-ACETAMINOPHEN 5-325 MG TABLET PO PRN ×2 (13:53)
[2018-01-04] MEDS ORDERED: MEPERIDINE HCL/PF INJ 25 MG/1 ML DISP.SYRIN IV PRN (13:53)
[2018-01-04] MEDS ORDERED: FENTANYL CITRATE INJ/PF 100 MCG/2 ML AMPUL IV PRN ×3 (13:53)
[2018-01-04] MEDS ORDERED: MORPHINE SULFATE 10 MG/ML INJ IV PRN (13:53)
[2018-01-04] MEDS ORDERED: DIPHENHYDRAMINE HCL 50 MG/ML VIAL IV PRN (13:53)
--- NOTE | 2018-01-04 14:33 | Operative Report ---
Operative Report DATE OF SURGERY: 01/04/18 PREOPERATIVE DIAGNOSIS: Left subtrochanteric femur fracture OPERATION: Open reduction internal fixation left subtrochanteric fracture SURGEON: WHITNEY LEAL ANESTHESIA: Spinal ESTIMATED BLOOD LOSS: 100 PROCEDURE: With the patient supine on the fracture table left lower extremities prepped and draped in sterile fashion. The extremity is manipulated under fluoroscopic guidance to affected near anatomic reduction. Subsequently a pin was placed percutaneously through the greater trochanter down into the femoral diaphysis. A combined reason was used to open a cortical opening. These are removed and the ball-tipped guide serjio was placed down the femur and the length measured to be 380 mm. The femoral diaphysis was then reamed until a 12.5 mm flexible reamers passed. Next a 380 mm x 1 25 by 11 mm Dazey gamma 3 nail was advanced over the ball-tipped guide serjio for an appropriate proximal interlock. 95 mm proximal interlock is placed. A 45 mm distal interlock is placed. The wounds irrigated and closure was interrupted Vicryl followed by kailyn. Sterile compressive dressings applied and the patient returned to PACU in satisfactory condition.
[2018-01-04] MEDS ORDERED: OXYCODONE HCL IR 5 MG TABLET PO PRN (14:51)
--- NOTE | 2018-01-04 16:12 | RADIOLOGY REPORT (SQ) ---
EXAM DESCRIPTION: NO CHG FLUORO; HIP IN OPERATING RM COMPLETED DATE/TIME: 01/04/2018 3:06 pm REASON FOR STUDY: ORIF LEFT HIP ASST WITH FLUORO IN OR COMPARISON: 01/02/2018. FLUOROSCOPY TIME: 1.9 minutes. 4 images saved to PACS. TECHNIQUE: Intra-operative images acquired during surgical procedure to evaluate progress. NUMBER OF IMAGES: 4 images. LIMITATIONS: None. FINDINGS: Surgical fixation of the hip fracture with placement of hardware. IMPRESSION: IMAGE(S) OBTAINED DURING PROCEDURE. COMMENT: Quality ID [id number]: Final reports for procedures using fluoroscopy that document radiation exp osure indices, or exposure time and number of fluorographic images (if radiation exposure indices are not available) Please consult full operative report of the attending physician for description of the procedure. TECHNICAL DOCUMENTATION: JOB ID: [id number] [employer]- All Rights Reserved Reading location - IP/workstation name: [email or web address]
--- NOTE | 2018-01-04 16:12 | RADIOLOGY REPORT (SQ) ---
EXAM DESCRIPTION: NO CHG FLUORO; HIP IN OPERATING RM COMPLETED DATE/TIME: 01/04/2018 3:06 pm REASON FOR STUDY: ORIF LEFT HIP ASST WITH FLUORO IN OR COMPARISON: 01/02/2018. FLUOROSCOPY TIME: 1.9 minutes. 4 images saved to PACS. TECHNIQUE: Intra-operative images acquired during surgical procedure to evaluate progress. NUMBER OF IMAGES: 4 images. LIMITATIONS: None. FINDINGS: Surgical fixation of the hip fracture with placement of hardware. IMPRESSION: IMAGE(S) OBTAINED DURING PROCEDURE. COMMENT: Quality ID [id number]: Final reports for procedures using fluoroscopy that document radiation exp osure indices, or exposure time and number of fluorographic images (if radiation exposure indices are not available) Please consult full operative report of the attending physician for description of the procedure. TECHNICAL DOCUMENTATION: JOB ID: [id number] [employer]- All Rights Reserved Reading location - IP/workstation name: [email or web address]
[2018-01-04 18:25] LABS: HEMATOCRIT 26.5 % (36.0-47.0); HEMOGLOBIN 8.8 g/dL (12.0-15.5); MEAN CORPUSCULAR HEMOGLOBIN 31.5 pg (27.0-33.4); MEAN CORPUSCULAR HGB CONC 33.2 g/dL (32.0-36.0); MEAN CORPUSCULAR VOLUME 95 fl (80-97); PLATELET COUNT 101 10^3/uL (150-450); RED CELL DISTRIBUTION WIDTH 12.9 % (11.5-14.0); WHITE BLOOD COUNT 11.3 10^3/uL (4.0-10.5)
[2018-01-05] MEDS: HEPARIN SOD (PORCINE) 5,000 UNIT/ML 1 ML SYRINGE SUBCUT SCH ×3 (04:21→21:45)
[2018-01-05 05:21] LABS: ABSOLUTE NEUT (AUTO) 6.8 10^3/uL (1.7-8.2); BASOPHILS % (AUTO) 0.4 % (0-2); EOSINOPHILS % (AUTO) 0.3 % (0-6); HEMATOCRIT 22.4 % (36.0-47.0); LYMPHOCYTES % (AUTO) 11.7 % (13-45); MEAN CORPUSCULAR HEMOGLOBIN 32.4 pg (27.0-33.4); MEAN CORPUSCULAR HGB CONC 34.3 g/dL (32.0-36.0); MEAN CORPUSCULAR VOLUME 94 fl (80-97); MONOCYTES % (AUTO) 11.8 % (3-13); RED BLOOD COUNT 2.37 10^6/uL (3.72-5.28); RED CELL DISTRIBUTION WIDTH 12.9 % (11.5-14.0); SEGMENTED NEUTROPHILS % (AUTO) 75.8 % (42-78); TOTAL CELLS COUNTED % (AUTO) 100 %; WHITE BLOOD COUNT 8.9 10^3/uL (4.0-10.5)
[2018-01-05 05:41] LABS: ANION GAP 9 (5-19); BLOOD UREA NITROGEN 11 mg/dL (7-20); CARBON DIOXIDE 27 mmol/L (22-30); CHLORIDE 99 mmol/L (98-107); GLUCOSE 126 mg/dL (75-110); POTASSIUM 4.2 mmol/L (3.6-5.0); SODIUM 134.6 mmol/L (137-145)
[2018-01-05 05:47] LABS: PLATELET COUNT 96 10^3/uL (150-450)
[2018-01-05 05:52] LABS: HEMOGLOBIN 7.7 g/dL (12.0-15.5)
[2018-01-05 06:05] LABS: INTERNATIONAL RATION (INR) 1.44; PARTIAL THROMBOPLASTIN TIME 38.4 SEC (23.5-35.8); PROTHROMBIN TIME 18.3 SEC (11.4-15.4)
[2018-01-05] MEDS: FENTANYL CITRATE INJ/PF 100 MCG/2 ML AMPUL IV PRN (06:19)
[2018-01-05] MEDS: ACETAMINOPHEN 325 MG TABLET PO PRN ×2 (06:19→14:07)
--- NOTE | 2018-01-05 06:50 | PDOC PROGRESS REPORT ---
Subjective Progress Note for:: 01/05/18 Reason For Visit: HIP FRACTURE, AFIB 87-year-old white female postop day 1 ORIF of a left subtrochanteric femur fracture Physical Exam Vital Signs: Temp Pulse Resp BP Pulse Ox 37.1 C 72 17 100/37 L 95 01/05/18 03:50 01/05/18 03:50 01/05/18 03:50 01/05/18 03:50 01/05/18 03:50 Intake & Output 01/03/18 01/04/18 01/05/18 06:59 06:59 06:59 Intake Total 1064 3466 5170 Output Total 200 1150 2100 Balance 864 2316 3070 Weight 66.4 kg 72.8 kg 71.1 kg General appearance: PRESENT: mild distress Head exam: PRESENT: normocephalic Respiratory exam: PRESENT: unlabored Cardiovascular exam: PRESENT: RRR Pulses: PRESENT: +1 pedal pulses bilateral Vascular exam: PRESENT: normal capillary refill GI/Abdominal exam: PRESENT: soft Rectal exam: PRESENT: deferred - Left lower extremity dressings clean dry and intact on the top 2. The distal dressings been reinforced. Leg lengths are equal. Distal neurovascular examination is intact. Neurological exam: PRESENT: alert, awake, oriented to person, oriented to place , oriented to situation Psychiatric exam: PRESENT: appropriate affect, normal mood. ABSENT: homicidal ideation, suicidal ideation Skin exam: PRESENT: dry, intact, warm. ABSENT: cyanosis, rash Results Laboratory Results: 01/05/18 04:24 01/05/18 04:24 01/04/18 01/04/18 01/04/18 07:16 07:16 10:12 WBC 8.4 RBC 2.87 L Hgb 9.3 L Hct 27.1 L MCV 94 MCH 32.6 MCHC 34.5 RDW 13.0 Plt Count 108 L Seg Neutrophils % 69.1 Lymphocytes % 16.4 Monocytes % 13.2 H Eosinophils % 0.9 Basophils % 0.4 Absolute Neutrophils 5.8 Absolute Lymphocytes 1.4 Absolute Monocytes 1.1 Absolute Eosinophils 0.1 Absolute Basophils 0.0 Sodium 134.5 L Potassium 4.4 Chloride 100 Carbon Dioxide 28 Anion Gap 7 BUN 11 Creatinine 0.66 Est GFR ( Amer) > 60 Est GFR (Non-Af Amer) > 60 Glucose 101 Calcium 8.2 L Blood Type AB POSITIVE Antibody Screen NEGATIVE 01/04/18 01/05/18 01/05/18 18:12 04:24 04:24 WBC 11.3 H 8.9 RBC 2.80 L 2.37 L Hgb 8.8 L 7.7 L Hct 26.5 L 22.4 L MCV 95 94 MCH 31.5 32.4 MCHC 33.2 34.3 RDW 12.9 12.9 Plt Count 101 L 96 L Seg Neutrophils % 75.8 Lymphocytes % 11.7 L Monocytes % 11.8 Eosinophils % 0.3 Basophils % 0.4 Absolute Neutrophils 6.8 Absolute Lymphocytes 1.0 Absolute Monocytes 1.0 Absolute Eosinophils 0.0 Absolute Basophils 0.0 Sodium 134.6 L Potassium 4.2 Chloride 99 Carbon Dioxide 27 Anion Gap 9 BUN 11 Creatinine 0.61 Est GFR ( Amer) > 60 Est GFR (Non-Af Amer) > 60 Glucose 126 H Calcium 8.0 L Blood Type Antibody Screen 01/03/18 01/03/18 01/03/18 02:29 02:29 08:00 Creatine Kinase 49 49 CK-MB (CK-2) 0.65 Troponin I < 0.012 01/03/18 08:00 Creatine Kinase CK-MB (CK-2) 0.57 Troponin I < 0.012 Impressions: Femur X-Ray 01/02/18 18:13 IMPRESSION: COMMINUTED INTERTROCHANTERIC FRACTURE OF THE PROXIMAL FEMUR WITH DISPLACEMENT AND ANGULATION Cervical Spine CT 01/02/18 18:57 IMPRESSION: 1. No acute fracture at the thoracic cervical spine. Multilevel degenerative changes. 2. A 1.4 cm hypodense nodule at the left lobe of the thyroid gland. This can be better evaluated with dedicated ultrasound. Head CT 01/02/18 18:57 IMPRESSION: No acute intracranial hemorrhage or depressed calvarial fracture. EVIDENCE OF ACUTE STROKE: NO. Pelvis X-Ray 01/02/18 18:57 IMPRESSION: Displaced, intertrochanteric fracture of the proximal left femur. Severe degenerative changes at the right hip. Osteopenia. Chest X-Ray 01/02/18 19:26 IMPRESSION: Cardiomegaly. Emphysema. No consolidation or pleural effusion. Fluoroscopy 01/04/18 00:00 IMPRESSION: IMAGE(S) OBTAINED DURING PROCEDURE. Hip X-Ray 01/04/18 00:00 IMPRESSION: IMAGE(S) OBTAINED DURING PROCEDURE. Status: Imported from PACS Assessment & Plan - Diagnosis (1) Atrial fibrillation Qualifiers: Atrial fibrillation type: chronic Qualified Code(s): I48.2 - Chronic atrial fibrillation Is this a current diagnosis for this admission?: Yes Plan: Restarted on preoperative Coumadin (2) Fracture, intertrochanteric, left femur Qualifiers: Encounter type: initial encounter Fracture type: closed Fracture alignment: displaced Qualified Code(s): S72.142A - Displaced intertrochanteric fracture of left femur, initial encounter for closed fracture Is this a current diagnosis for this admission?: Yes Plan: Patient to be mobilized and weightbearing as tolerated basis with physical therapy. Discontinue Ponce. (3) Acute blood loss as cause of postoperative anemia Is this a current diagnosis for this admission?: Yes Plan: Patient's hematocrit is dropped to 22%. 2 units of packed red blood cells have been ordered with repeat labs in the morning. - Time Time Spent with patient: 15-24 minutes Anticipated discharge: SNF Within: Other
[2018-01-05] MEDS ORDERED: WARFARIN SODIUM 1 MG TABLET PO SCH (08:00)
[2018-01-05] MEDS ORDERED: (PENDING PHARMACY ID) (Warfarin Sodium 1 MG) PO SCH (08:00)
[2018-01-05] MEDS: LISINOPRIL 5 MG TABLET PO SCH (09:39)
[2018-01-05] MEDS: CARVEDILOL 6.25 MG TABLET PO SCH ×2 (09:44→21:44)
[2018-01-05] MEDS: DOCUSATE SODIUM 100 MG CAPSULE PO SCH ×2 (09:45→17:43)
[2018-01-05] MEDS: AMIODARONE HCL 200 MG TABLET PO SCH (09:45)
[2018-01-05] MEDS: TOLTERODINE TARTRATE 1 MG TABLET PO SCH ×2 (09:45→21:44)
--- NOTE | 2018-01-05 19:23 | PDOC PROGRESS REPORT ---
Subjective Progress Note for:: 01/05/18 Subjective:: ROSALBA DE LEON is a 87 y.o. F who presented to [facility] s/p fall. +fracture. POD#1 ORIF L hip. Patient seen this morning on rounds. She is resting in bed on room air, A&Ox3 and able to answer questions without pause. Hgb dropped to 7.7 from 8.8. Transfused 2U PRBC today. Patient denies feeling dizzy, SOB, or fatigued. She was able to participate in physical therapy. Daughter at bedside. Family is aware that patient will require acute rehab following hospitalization. They are requesting that she is transferred to acute rehab in [place], [place]. Reason For Visit: HIP FRACTURE, AFIB Physical Exam Vital Signs: Temp Pulse Resp BP Pulse Ox 98.2 F 72 18 108/43 L 96 01/05/18 15:25 01/05/18 15:25 01/05/18 15:25 01/05/18 15:25 01/05/18 15:25 Intake & Output 01/04/18 01/05/18 01/06/18 06:59 06:59 06:59 Intake Total 3466 5170 600 Output Total 1150 2100 Balance 2316 3070 600 Weight 72.8 kg 71.1 kg General appearance: PRESENT: no acute distress Eye exam: PRESENT: conjunctiva pink, PERRLA Mouth exam: PRESENT: moist Neck exam: PRESENT: full ROM Respiratory exam: PRESENT: clear to auscultation vika, symmetrical, unlabored Cardiovascular exam: PRESENT: irregular rhythm Pulses: PRESENT: normal radial pulses, normal dorsalis pedis pul Vascular exam: PRESENT: pallor GI/Abdominal exam: PRESENT: normal bowel sounds, soft. ABSENT: tenderness Rectal exam: PRESENT: deferred Extremities exam: ABSENT: full ROM - Partial LLE movement Musculoskeletal exam: PRESENT: ambulatory - with assistance. ABSENT: full ROM - partial LLE movement Neurological exam: PRESENT: alert, awake, oriented to person, oriented to place , oriented to time, oriented to situation Psychiatric exam: PRESENT: appropriate affect Skin exam: PRESENT: pallor Results Laboratory Results: 01/05/18 04:24 01/05/18 04:24 01/04/18 01/04/18 01/05/18 10:12 18:12 04:24 WBC 11.3 H 8.9 RBC 2.80 L 2.37 L Hgb 8.8 L 7.7 L Hct 26.5 L 22.4 L MCV 95 94 MCH 31.5 32.4 MCHC 33.2 34.3 RDW 12.9 12.9 Plt Count 101 L 96 L Seg Neutrophils % 75.8 Lymphocytes % 11.7 L Monocytes % 11.8 Eosinophils % 0.3 Basophils % 0.4 Absolute Neutrophils 6.8 Absolute Lymphocytes 1.0 Absolute Monocytes 1.0 Absolute Eosinophils 0.0 Absolute Basophils 0.0 Sodium Potassium Chloride Carbon Dioxide Anion Gap BUN Creatinine Est GFR ( Amer) Est GFR (Non-Af Amer) Glucose Calcium Blood Type AB POSITIVE Antibody Screen NEGATIVE 01/05/18 04:24 WBC RBC Hgb Hct MCV MCH MCHC RDW Plt Count Seg Neutrophils % Lymphocytes % Monocytes % Eosinophils % Basophils % Absolute Neutrophils Absolute Lymphocytes Absolute Monocytes Absolute Eosinophils Absolute Basophils Sodium 134.6 L Potassium 4.2 Chloride 99 Carbon Dioxide 27 Anion Gap 9 BUN 11 Creatinine 0.61 Est GFR ( Amer) > 60 Est GFR (Non-Af Amer) > 60 Glucose 126 H Calcium 8.0 L Blood Type Antibody Screen 01/03/18 01/03/18 01/03/18 02:29 02:29 08:00 Creatine Kinase 49 49 CK-MB (CK-2) 0.65 Troponin I < 0.012 01/03/18 08:00 Creatine Kinase CK-MB (CK-2) 0.57 Troponin I < 0.012 Impressions: Femur X-Ray 01/02/18 18:13 IMPRESSION: COMMINUTED INTERTROCHANTERIC FRACTURE OF THE PROXIMAL FEMUR WITH DISPLACEMENT AND ANGULATION Cervical Spine CT 01/02/18 18:57 IMPRESSION: 1. No acute fracture at the thoracic cervical spine. Multilevel degenerative changes. 2. A 1.4 cm hypodense nodule at the left lobe of the thyroid gland. This can be better evaluated with dedicated ultrasound. Head CT 01/02/18 18:57 IMPRESSION: No acute intracranial hemorrhage or depressed calvarial fracture. EVIDENCE OF ACUTE STROKE: NO. Pelvis X-Ray 01/02/18 18:57 IMPRESSION: Displaced, intertrochanteric fracture of the proximal left femur. Severe degenerative changes at the right hip. Osteopenia. Chest X-Ray 01/02/18 19:26 IMPRESSION: Cardiomegaly. Emphysema. No consolidation or pleural effusion. Fluoroscopy 01/04/18 00:00 IMPRESSION: IMAGE(S) OBTAINED DURING PROCEDURE. Hip X-Ray 01/04/18 00:00 IMPRESSION: IMAGE(S) OBTAINED DURING PROCEDURE. Status: Imported from PACS Assessment & Plan - Diagnosis (1) Acute blood loss as cause of postoperative anemia Is this a current diagnosis for this admission?: Yes Plan: Asymptomatic anemia likely due to postoperative blood loss. Hgb trending down to 7.7 today, transfused 2U PRBC Patient denies dizziness, fatigue, or SOB Continue daily CBC (2) Fracture, intertrochanteric, left femur Qualifiers: Encounter type: initial encounter Fracture type: closed Fracture alignment: displaced Qualified Code(s): S72.142A - Displaced intertrochanteric fracture of left femur, initial encounter for closed fracture Is this a current diagnosis for this admission?: Yes Plan: POD#1 L ORIF for femur fracture repair Left femur fracture status post mechanical fall. Minimal risk for cardiopulmonary complications of orthopedic surgery given the patient's underlying fitness (reports that she ambulate 2 miles daily). Pain is well-controlled with as needed Tylenol and IV fentanyl. Antiemetics as needed. PT/OT daily Discharge planning has been consulted; patient's family lives in [place] ( patient was in town on vacation) and requesting that she is placed in acute rehab close to home. (3) Atrial fibrillation Qualifiers: Atrial fibrillation type: chronic Qualified Code(s): I48.2 - Chronic atrial fibrillation Is this a current diagnosis for this admission?: Yes Plan: Paced and rate controlled rhythm. Patient's home medications reviewed. Resumed on home dose Coumadin (4) Fall Qualifiers: Encounter type: initial encounter Qualified Code(s): W19.XXXA - Unspecified fall, initial encounter Is this a current diagnosis for this admission?: Yes Plan: Mechanical fall secondary to stepping on unstable ground. Primary plan as above. - Time Time Spent with patient: 15-24 minutes Medications reviewed and adjusted accordingly: Yes Anticipated discharge: Acute Rehab Within: within 72 hours - Inpatient Certification Based on my medical assessment, after consideration of the patient's comorbidities, presenting symptoms, or acuity I expect that the services needed warrant INPATIENT care.: Yes I certify that my determination is in accordance with my understanding of Medicare's requirements for reasonable and necessary INPATIENT services [42 CFR 412.3e].: Yes Medical Necessity: Risk of Complication if Not Cared For in Hospital - Plan Summary Plan Summary: PLAN IS TO SEND PATIENT TO ACUTE REHAB FOLLOWING DISCHARGE FROM THE HOSPITAL. PATIENT WAS IN TOWN ON VACATION WHEN SHE SUFFERED HER INJURY. FAMILY ALL LIVES IN [place]. REQUESTING THAT PATIENT IS TRANSFERRED TO ACUTE REHAB FACILITY IN [place]. BARRING ANY FURTHER MEDICAL OR POSTOP COMPLICATIONS, PLAN FOR DISCHARGE ON THURSDAY.
[2018-01-06] MEDS: HEPARIN SOD (PORCINE) 5,000 UNIT/ML 1 ML SYRINGE SUBCUT SCH ×3 (04:46→21:32)
[2018-01-06] MEDS: ACETAMINOPHEN 325 MG TABLET PO PRN ×2 (04:48→21:41)
[2018-01-06 06:16] LABS: INTERNATIONAL RATION (INR) 1.31
[2018-01-06 06:35] LABS: ALANINE AMINOTRANSFERASE 27 U/L (9-52); ALBUMIN 2.7 g/dL (3.5-5.0); ALKALINE PHOSPHATASE 37 U/L (38-126); ANION GAP 6 (5-19); ASPARTATE AMINO TRANSFERASE 25 U/L (14-36); BILIRUBIN,DIRECT 0.4 mg/dL (0.0-0.4); BILIRUBIN,TOTAL 1.3 mg/dL (0.2-1.3); BLOOD UREA NITROGEN 17 mg/dL (7-20); CALCIUM 7.7 mg/dL (8.4-10.2); CARBON DIOXIDE 29 mmol/L (22-30); CHLORIDE 100 mmol/L (98-107); GLUCOSE 128 mg/dL (75-110); SODIUM 134.8 mmol/L (137-145)
[2018-01-06 06:36] LABS: ABSOLUTE EOSINOPHILS # (AUTO) 0.1 10^3/uL (0.0-0.6); ABSOLUTE LYMPHOCYTES (AUTO) 1.1 10^3/uL (0.5-4.7); ABSOLUTE MONOCYTES (AUTO) 0.6 10^3/uL (0.1-1.4); ABSOLUTE NEUT (AUTO) 6.8 10^3/uL (1.7-8.2); BASOPHILS % (AUTO) 0.5 % (0-2); EOSINOPHILS % (AUTO) 1.2 % (0-6); HEMATOCRIT 26.6 % (36.0-47.0); HEMOGLOBIN 9.3 g/dL (12.0-15.5); LYMPHOCYTES % (AUTO) 12.7 % (13-45); MEAN CORPUSCULAR HEMOGLOBIN 31.8 pg (27.0-33.4); MEAN CORPUSCULAR VOLUME 91 fl (80-97); MONOCYTES % (AUTO) 7.1 % (3-13); RED BLOOD COUNT 2.93 10^6/uL (3.72-5.28); SEGMENTED NEUTROPHILS % (AUTO) 78.5 % (42-78); TOTAL CELLS COUNTED % (AUTO) 100 %; WHITE BLOOD COUNT 8.7 10^3/uL (4.0-10.5)
--- NOTE | 2018-01-06 06:59 | PDOC PROGRESS REPORT ---
Subjective Progress Note for:: 01/06/18 Reason For Visit: HIP FRACTURE, AFIB 87-year-old white female status post open reduction internal fixation of a left subtrochanteric femur fracture. Patient more comfortable today sitting up in a chair. Physical Exam Vital Signs: Temp Pulse Resp BP Pulse Ox 36.9 C 72 18 103/44 L 96 01/05/18 23:17 01/06/18 02:00 01/05/18 15:25 01/05/18 23:17 01/05/18 23:17 Intake & Output 01/04/18 01/05/18 01/06/18 06:59 06:59 06:59 Intake Total 3466 5170 2768 Output Total 1150 2100 700 Balance 2316 3070 2068 Weight 72.8 kg 71.1 kg 69.7 kg General appearance: PRESENT: no acute distress Head exam: PRESENT: normocephalic Respiratory exam: PRESENT: unlabored Cardiovascular exam: PRESENT: RRR Pulses: PRESENT: +1 pedal pulses bilateral Vascular exam: PRESENT: normal capillary refill GI/Abdominal exam: PRESENT: soft Rectal exam: PRESENT: deferred Extremities exam: PRESENT: other - Left hip dressing dry. Leg lengths are equal. Distal neurovascular examination is intact. Neurological exam: PRESENT: alert, awake, oriented to person, oriented to place , oriented to time, oriented to situation. ABSENT: motor sensory deficit Psychiatric exam: PRESENT: appropriate affect, normal mood. ABSENT: homicidal ideation, suicidal ideation Skin exam: PRESENT: dry, intact, warm. ABSENT: cyanosis, rash Results Laboratory Results: 01/06/18 05:41 01/04/18 01/06/18 10:12 05:41 Sodium 134.8 L Potassium 4.0 Chloride 100 Carbon Dioxide 29 Anion Gap 6 BUN 17 Creatinine 0.68 Est GFR ( Amer) > 60 Est GFR (Non-Af Amer) > 60 Glucose 128 H Calcium 7.7 L Total Bilirubin 1.3 AST 25 ALT 27 Alkaline Phosphatase 37 L Total Protein 5.0 L Albumin 2.7 L Blood Type AB POSITIVE Antibody Screen NEGATIVE 01/03/18 01/03/18 01/03/18 02:29 02:29 08:00 Creatine Kinase 49 49 CK-MB (CK-2) 0.65 Troponin I < 0.012 01/03/18 08:00 Creatine Kinase CK-MB (CK-2) 0.57 Troponin I < 0.012 Impressions: Femur X-Ray 01/02/18 18:13 IMPRESSION: COMMINUTED INTERTROCHANTERIC FRACTURE OF THE PROXIMAL FEMUR WITH DISPLACEMENT AND ANGULATION Cervical Spine CT 01/02/18 18:57 IMPRESSION: 1. No acute fracture at the thoracic cervical spine. Multilevel degenerative changes. 2. A 1.4 cm hypodense nodule at the left lobe of the thyroid gland. This can be better evaluated with dedicated ultrasound. Head CT 01/02/18 18:57 IMPRESSION: No acute intracranial hemorrhage or depressed calvarial fracture. EVIDENCE OF ACUTE STROKE: NO. Pelvis X-Ray 01/02/18 18:57 IMPRESSION: Displaced, intertrochanteric fracture of the proximal left femur. Severe degenerative changes at the right hip. Osteopenia. Chest X-Ray 01/02/18 19:26 IMPRESSION: Cardiomegaly. Emphysema. No consolidation or pleural effusion. Fluoroscopy 01/04/18 00:00 IMPRESSION: IMAGE(S) OBTAINED DURING PROCEDURE. Hip X-Ray 01/04/18 00:00 IMPRESSION: IMAGE(S) OBTAINED DURING PROCEDURE. Assessment & Plan - Diagnosis (1) Atrial fibrillation Qualifiers: Atrial fibrillation type: chronic Qualified Code(s): I48.2 - Chronic atrial fibrillation Is this a current diagnosis for this admission?: Yes Plan: Stable. On Coumadin. Last INR is 1.31 (2) Fracture, intertrochanteric, left femur Qualifiers: Encounter type: initial encounter Fracture type: closed Fracture alignment: displaced Qualified Code(s): S72.142A - Displaced intertrochanteric fracture of left femur, initial encounter for closed fracture Is this a current diagnosis for this admission?: Yes Plan: Progressing with physical therapy and weightbearing as tolerated amatory basis (3) Acute blood loss as cause of postoperative anemia Is this a current diagnosis for this admission?: Yes Plan: Hematocrit yesterday is 22%. Posttransfusion hematocrit is pending this morning. - Time Time Spent with patient: 15-24 minutes Anticipated discharge: SNF Within: when bed available
[2018-01-06 07:15] LABS: PLATELET COUNT 98 10^3/uL (150-450)
[2018-01-06] MEDS ORDERED: WARFARIN SODIUM 2 MG TABLET PO SCH (08:00)
[2018-01-06] MEDS ORDERED: (PENDING PHARMACY ID) (Warfarin Sodium 2 MG) PO SCH (08:00)
[2018-01-06] MEDS: LISINOPRIL 5 MG TABLET PO SCH (09:19)
[2018-01-06] MEDS: CARVEDILOL 6.25 MG TABLET PO SCH ×2 (09:33→21:41)
[2018-01-06] MEDS: TOLTERODINE TARTRATE 1 MG TABLET PO SCH ×2 (09:33→21:41)
[2018-01-06] MEDS: AMIODARONE HCL 200 MG TABLET PO SCH (09:33)
[2018-01-06] MEDS: DOCUSATE SODIUM 100 MG CAPSULE PO SCH ×2 (09:33→17:18)
--- NOTE | 2018-01-06 16:49 | PDOC PROGRESS REPORT ---
Subjective Progress Note for:: 01/06/18 Subjective:: ROSALBA DE LEON is a 87 y.o. F who presented to [facility] s/p fall. +fracture. POD#1 ORIF L hip. Patient seen this morning on rounds. She is sitting up in her bedside recliner, A&Ox3 and able to answer questions without pause. Patient denies feeling dizzy, SOB, or fatigued. She was able to participate in physical therapy. Plan remains for patient to be transferred to acute rehab in [place], [place]. Reason For Visit: HIP FRACTURE, AFIB Physical Exam Vital Signs: Temp Pulse Resp BP Pulse Ox 98.9 F 72 16 116/51 L 97 01/06/18 15:29 01/06/18 15:29 01/06/18 15:29 01/06/18 15:29 01/06/18 15:29 Intake & Output 01/05/18 01/06/18 01/07/18 06:59 06:59 06:59 Intake Total 5170 2768 660 Output Total 2100 700 600 Balance 3070 2068 60 Weight 71.1 kg 69.7 kg General appearance: PRESENT: no acute distress, well-developed, well-nourished Head exam: PRESENT: atraumatic, normocephalic Eye exam: PRESENT: conjunctiva pink, EOMI, PERRLA. ABSENT: scleral icterus Ear exam: PRESENT: normal external ear exam Mouth exam: PRESENT: moist, tongue midline Neck exam: ABSENT: carotid bruit, JVD, lymphadenopathy, thyromegaly Respiratory exam: PRESENT: clear to auscultation vika. ABSENT: rales, rhonchi, wheezes Cardiovascular exam: ABSENT: diastolic murmur, rubs, systolic murmur Pulses: PRESENT: normal dorsalis pedis pul Vascular exam: PRESENT: normal capillary refill, pallor GI/Abdominal exam: PRESENT: normal bowel sounds, soft. ABSENT: distended, guarding, mass, organolmegaly, rebound, tenderness Rectal exam: PRESENT: deferred Extremities exam: PRESENT: full ROM - limited ROM to LLE. ABSENT: calf tenderness, clubbing, pedal edema Musculoskeletal exam: PRESENT: ambulatory - with assistance, full ROM - limited ROM to LLE Neurological exam: PRESENT: alert, awake, oriented to person, oriented to place , oriented to time, oriented to situation Psychiatric exam: PRESENT: appropriate affect, normal mood Skin exam: PRESENT: dry, intact, warm. ABSENT: cyanosis, rash Results Laboratory Results: 01/06/18 05:41 01/06/18 05:41 01/06/18 01/06/18 05:41 05:41 WBC 8.7 RBC 2.93 L Hgb 9.3 L Hct 26.6 L MCV 91 MCH 31.8 MCHC 35.0 RDW 15.0 H Plt Count 98 L Seg Neutrophils % 78.5 H Lymphocytes % 12.7 L Monocytes % 7.1 Eosinophils % 1.2 Basophils % 0.5 Absolute Neutrophils 6.8 Absolute Lymphocytes 1.1 Absolute Monocytes 0.6 Absolute Eosinophils 0.1 Absolute Basophils 0.0 Sodium 134.8 L Potassium 4.0 Chloride 100 Carbon Dioxide 29 Anion Gap 6 BUN 17 Creatinine 0.68 Est GFR ( Amer) > 60 Est GFR (Non-Af Amer) > 60 Glucose 128 H Calcium 7.7 L Total Bilirubin 1.3 AST 25 ALT 27 Alkaline Phosphatase 37 L Total Protein 5.0 L Albumin 2.7 L 01/03/18 01/03/18 01/03/18 02:29 02:29 08:00 Creatine Kinase 49 49 CK-MB (CK-2) 0.65 Troponin I < 0.012 01/03/18 08:00 Creatine Kinase CK-MB (CK-2) 0.57 Troponin I < 0.012 Impressions: Femur X-Ray 01/02/18 18:13 IMPRESSION: COMMINUTED INTERTROCHANTERIC FRACTURE OF THE PROXIMAL FEMUR WITH DISPLACEMENT AND ANGULATION Cervical Spine CT 01/02/18 18:57 IMPRESSION: 1. No acute fracture at the thoracic cervical spine. Multilevel degenerative changes. 2. A 1.4 cm hypodense nodule at the left lobe of the thyroid gland. This can be better evaluated with dedicated ultrasound. Head CT 01/02/18 18:57 IMPRESSION: No acute intracranial hemorrhage or depressed calvarial fracture. EVIDENCE OF ACUTE STROKE: NO. Pelvis X-Ray 01/02/18 18:57 IMPRESSION: Displaced, intertrochanteric fracture of the proximal left femur. Severe degenerative changes at the right hip. Osteopenia. Chest X-Ray 01/02/18 19:26 IMPRESSION: Cardiomegaly. Emphysema. No consolidation or pleural effusion. Fluoroscopy 01/04/18 00:00 IMPRESSION: IMAGE(S) OBTAINED DURING PROCEDURE. Hip X-Ray 01/04/18 00:00 IMPRESSION: IMAGE(S) OBTAINED DURING PROCEDURE. Status: Imported from PACS Assessment & Plan - Diagnosis (1) Acute blood loss as cause of postoperative anemia Is this a current diagnosis for this admission?: Yes Plan: Resolved. Asymptomatic anemia likely due to postoperative blood loss. Hgb trendied down to 7.7 yesterday requiring 2U PRBC Hgb now stabilized at 9.3 Patient denies dizziness, fatigue, or SOB Continue daily CBC (2) Fracture, intertrochanteric, left femur Qualifiers: Encounter type: initial encounter Fracture type: closed Fracture alignment: displaced Qualified Code(s): S72.142A - Displaced intertrochanteric fracture of left femur, initial encounter for closed fracture Is this a current diagnosis for this admission?: Yes Plan: POD#2 L ORIF for femur fracture repair Left femur fracture status post mechanical fall. Minimal risk for cardiopulmonary complications of orthopedic surgery given the patient's underlying fitness (reports that she ambulate 2 miles daily). Pain is well-controlled with as needed Tylenol and IV fentanyl. Antiemetics as needed. PT/OT daily Discharge planning has been consulted; patient's family lives in [place] ( patient was in town on vacation) and requesting that she is placed in acute rehab close to home. (3) Atrial fibrillation Qualifiers: Atrial fibrillation type: chronic Qualified Code(s): I48.2 - Chronic atrial fibrillation Is this a current diagnosis for this admission?: Yes Plan: Paced and rate controlled rhythm. Patient's home medications reviewed. Patient's chadsvasc score is 3 INR remains subtherapeutic (1.3) Currently alternating between 2 mg and 1 mg of Coumadin. Plan to initiate 2 mg daily Coumadin. 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 Acute rehab facility will need specific instructions regarding INR monitoring. (4) Fall Qualifiers: Encounter type: initial encounter Qualified Code(s): W19.XXXA - Unspecified fall, initial encounter Is this a current diagnosis for this admission?: Yes Plan: Mechanical fall secondary to stepping on unstable ground. Primary plan as above. - Time Time Spent with patient: 15-24 minutes Anticipated discharge: Home - Inpatient Certification Based on my medical assessment, after consideration of the patient's comorbidities, presenting symptoms, or acuity I expect that the services needed warrant INPATIENT care.: Yes I certify that my determination is in accordance with my understanding of Medicare's requirements for reasonable and necessary INPATIENT services [42 CFR 412.3e].: Yes Medical Necessity: Risk of Complication if Not Cared For in Hospital - Plan Summary Plan Summary: DISCHARGE TO ACUTE REHAB IN [place], [place]. DISCHARGE PLANNING AWARE
[2018-01-07] MEDS: HEPARIN SOD (PORCINE) 5,000 UNIT/ML 1 ML SYRINGE SUBCUT SCH ×3 (04:54→21:12)
[2018-01-07] MEDS: ACETAMINOPHEN 325 MG TABLET PO PRN ×2 (05:51→22:09)
[2018-01-07 05:56] LABS: INTERNATIONAL RATION (INR) 1.37; PROTHROMBIN TIME 17.6 SEC (11.4-15.4)
[2018-01-07 08:37] LABS: HEMATOCRIT 25.1 % (36.0-47.0); HEMOGLOBIN 8.7 g/dL (12.0-15.5); MEAN CORPUSCULAR HEMOGLOBIN 31.8 pg (27.0-33.4); MEAN CORPUSCULAR HGB CONC 34.5 g/dL (32.0-36.0); MEAN CORPUSCULAR VOLUME 92 fl (80-97); PLATELET COUNT 112 10^3/uL (150-450); RED BLOOD COUNT 2.73 10^6/uL (3.72-5.28); RED CELL DISTRIBUTION WIDTH 14.8 % (11.5-14.0); WHITE BLOOD COUNT 8.4 10^3/uL (4.0-10.5)
[2018-01-07] MEDS: LISINOPRIL 5 MG TABLET PO SCH (08:51)
[2018-01-07 08:57] LABS: ANION GAP 10 (5-19); BLOOD UREA NITROGEN 21 mg/dL (7-20); CALCIUM 7.9 mg/dL (8.4-10.2); CARBON DIOXIDE 28 mmol/L (22-30); CHLORIDE 100 mmol/L (98-107); GLUCOSE 120 mg/dL (75-110); PHOSPHORUS 2.3 mg/dL (2.5-4.5); POTASSIUM 3.6 mmol/L (3.6-5.0); SODIUM 137.9 mmol/L (137-145)
[2018-01-07] MEDS: TOLTERODINE TARTRATE 1 MG TABLET PO SCH ×2 (09:05→21:12)
[2018-01-07] MEDS: DOCUSATE SODIUM 100 MG CAPSULE PO SCH ×2 (09:05→17:38)
[2018-01-07] MEDS: AMIODARONE HCL 200 MG TABLET PO SCH (09:05)
[2018-01-07] MEDS: WARFARIN SODIUM 2 MG TABLET PO SCH (09:05)
[2018-01-07] MEDS: CARVEDILOL 6.25 MG TABLET PO SCH ×2 (09:06→21:13)
--- NOTE | 2018-01-07 20:17 | PDOC PROGRESS REPORT ---
Subjective Progress Note for:: 01/07/18 Subjective:: ROSALBA DE LEON is a 87 y.o. F who presented to [facility] s/p fall. +fracture. POD#1 ORIF L hip. Patient seen this morning on rounds. She is sitting up in her bedside recliner, A&Ox3 and able to answer questions without pause. Patient denies feeling dizzy, SOB, or fatigued. She was able to participate in physical therapy. Plan remains for patient to be transferred tomorrow to acute rehab in [place], [place]. Reason For Visit: HIP FRACTURE, AFIB Physical Exam Vital Signs: Temp Pulse Resp BP Pulse Ox 97.7 F 81 16 122/58 L 100 01/07/18 15:28 01/07/18 19:00 01/07/18 15:28 01/07/18 15:28 01/07/18 15:28 Intake & Output 01/06/18 01/07/18 01/08/18 06:59 06:59 06:59 Intake Total 1058 680 635 Output Total 700 1400 Balance 2068 -720 635 Weight 69.7 kg 70.6 kg General appearance: PRESENT: no acute distress Eye exam: PRESENT: conjunctiva pink, PERRLA Mouth exam: PRESENT: moist Neck exam: PRESENT: full ROM Respiratory exam: PRESENT: clear to auscultation vika, symmetrical, unlabored Cardiovascular exam: PRESENT: +S1, +S2 Pulses: PRESENT: normal radial pulses, normal dorsalis pedis pul Vascular exam: PRESENT: pallor GI/Abdominal exam: PRESENT: normal bowel sounds, soft Rectal exam: PRESENT: deferred Extremities exam: PRESENT: full ROM Musculoskeletal exam: PRESENT: ambulatory, full ROM Neurological exam: PRESENT: alert, awake, oriented to person, oriented to place , oriented to time, oriented to situation Psychiatric exam: PRESENT: appropriate affect Skin exam: PRESENT: dry, pallor, other - Surgical site c/d/i. dressing intact. Results Laboratory Results: 01/07/18 08:16 01/07/18 08:16 01/07/18 01/07/18 08:16 08:16 WBC 8.4 RBC 2.73 L Hgb 8.7 L Hct 25.1 L MCV 92 MCH 31.8 MCHC 34.5 RDW 14.8 H Plt Count 112 L Sodium 137.9 Potassium 3.6 Chloride 100 Carbon Dioxide 28 Anion Gap 10 BUN 21 H Creatinine 0.65 Est GFR ( Amer) > 60 Est GFR (Non-Af Amer) > 60 Glucose 120 H Calcium 7.9 L Phosphorus 2.3 L Magnesium 2.3 01/03/18 01/03/18 01/03/18 02:29 02:29 08:00 Creatine Kinase 49 49 CK-MB (CK-2) 0.65 Troponin I < 0.012 01/03/18 08:00 Creatine Kinase CK-MB (CK-2) 0.57 Troponin I < 0.012 Impressions: Femur X-Ray 01/02/18 18:13 IMPRESSION: COMMINUTED INTERTROCHANTERIC FRACTURE OF THE PROXIMAL FEMUR WITH DISPLACEMENT AND ANGULATION Cervical Spine CT 01/02/18 18:57 IMPRESSION: 1. No acute fracture at the thoracic cervical spine. Multilevel degenerative changes. 2. A 1.4 cm hypodense nodule at the left lobe of the thyroid gland. This can be better evaluated with dedicated ultrasound. Head CT 01/02/18 18:57 IMPRESSION: No acute intracranial hemorrhage or depressed calvarial fracture. EVIDENCE OF ACUTE STROKE: NO. Pelvis X-Ray 01/02/18 18:57 IMPRESSION: Displaced, intertrochanteric fracture of the proximal left femur. Severe degenerative changes at the right hip. Osteopenia. Chest X-Ray 01/02/18 19:26 IMPRESSION: Cardiomegaly. Emphysema. No consolidation or pleural effusion. Fluoroscopy 01/04/18 00:00 IMPRESSION: IMAGE(S) OBTAINED DURING PROCEDURE. Hip X-Ray 01/04/18 00:00 IMPRESSION: IMAGE(S) OBTAINED DURING PROCEDURE. Status: Imported from PACS Assessment & Plan - Diagnosis (1) Acute blood loss as cause of postoperative anemia Is this a current diagnosis for this admission?: Yes Plan: Resolved. Asymptomatic anemia likely due to postoperative blood loss. Hgb trended down to 7.7 postoperatively, requiring 2U PRBC Hgb now stabilized at 8.8 Patient denies dizziness, fatigue, or SOB Continue daily CBC (2) Fracture, intertrochanteric, left femur Qualifiers: Encounter type: initial encounter Fracture type: closed Fracture alignment: displaced Qualified Code(s): S72.142A - Displaced intertrochanteric fracture of left femur, initial encounter for closed fracture Is this a current diagnosis for this admission?: Yes Plan: POD#3 L ORIF for femur fracture repair Left femur fracture status post mechanical fall. Minimal risk for cardiopulmonary complications of orthopedic surgery given the patient's underlying fitness (reports that she ambulate 2 miles daily). Pain is well-controlled with as needed Tylenol and IV fentanyl. Antiemetics as needed. PT/OT daily Discharge planning has been consulted; patient's family lives in [place] ( patient was in town on vacation) and requesting that she is placed in acute rehab close to home. (3) Atrial fibrillation Qualifiers: Atrial fibrillation type: chronic Qualified Code(s): I48.2 - Chronic atrial fibrillation Is this a current diagnosis for this admission?: Yes Plan: Paced and rate controlled rhythm. Patient's home medications reviewed. Patient's chadsvasc score is 3 INR remains subtherapeutic (1.37) Currently alternating between 2 mg and 1 mg of Coumadin. Plan to initiate 2 mg daily Coumadin. Will notify patient's atm mechanic. Acute rehab facility will need specific instructions regarding INR monitoring. (4) Fall Qualifiers: Encounter type: initial encounter Qualified Code(s): W19.XXXA - Unspecified fall, initial encounter Is this a current diagnosis for this admission?: Yes Plan: Mechanical fall secondary to stepping on unstable ground. Primary plan as above. - Time Time Spent with patient: 15-24 minutes Medications reviewed and adjusted accordingly: Yes Anticipated discharge: Acute Rehab Within: within 24 hours - Inpatient Certification Based on my medical assessment, after consideration of the patient's comorbidities, presenting symptoms, or acuity I expect that the services needed warrant INPATIENT care.: Yes I certify that my determination is in accordance with my understanding of Medicare's requirements for reasonable and necessary INPATIENT services [42 CFR 412.3e].: Yes Medical Necessity: Risk of Complication if Not Cared For in Hospital - Plan Summary Plan Summary: Plan to discharge from [facility] tomorrow and transport to acute rehab in [place].
[2018-01-08 04:04] VITALS: BP 105/61
[2018-01-08] MEDS: HEPARIN SOD (PORCINE) 5,000 UNIT/ML 1 ML SYRINGE SUBCUT SCH (04:35)
[2018-01-08 06:32] LABS: HEMATOCRIT 24.8 % (36.0-47.0); HEMOGLOBIN 8.4 g/dL (12.0-15.5); MEAN CORPUSCULAR HEMOGLOBIN 31.9 pg (27.0-33.4); MEAN CORPUSCULAR HGB CONC 34.1 g/dL (32.0-36.0); MEAN CORPUSCULAR VOLUME 94 fl (80-97); PLATELET COUNT 114 10^3/uL (150-450); RED BLOOD COUNT 2.65 10^6/uL (3.72-5.28); RED CELL DISTRIBUTION WIDTH 14.7 % (11.5-14.0); WHITE BLOOD COUNT 6.5 10^3/uL (4.0-10.5)
[2018-01-08 06:36] LABS: PROTHROMBIN TIME 17.9 SEC (11.4-15.4)
[2018-01-08 06:50] LABS: ANION GAP 8 (5-19); BLOOD UREA NITROGEN 21 mg/dL (7-20); CALCIUM 8.1 mg/dL (8.4-10.2); CARBON DIOXIDE 29 mmol/L (22-30); CHLORIDE 102 mmol/L (98-107); GLUCOSE 96 mg/dL (75-110); PHOSPHORUS 3.1 mg/dL (2.5-4.5); POTASSIUM 4.3 mmol/L (3.6-5.0); SODIUM 138.8 mmol/L (137-145)
--- NOTE | 2018-01-08 07:01 | PDOC TRANSFER SUMMARY ---
General Admission Date/PCP: 01/02/18 20:46 Admission Date: 01/02/18 Transfer Date: 01/08/18 Resuscitation Status: Full Code - Transfer Diagnosis (1) Acute blood loss as cause of postoperative anemia Is this a current diagnosis for this admission?: Yes (2) Fracture, intertrochanteric, left femur Is this a current diagnosis for this admission?: Yes (3) Atrial fibrillation Is this a current diagnosis for this admission?: Yes (4) Fall Is this a current diagnosis for this admission?: Yes - Transfer Medications Home Medications: Amiodarone HCl [Pacerone] 200 mg PO DAILY 01/03/18 Carvedilol [Coreg 6.25 mg Tablet] 6.25 mg PO Q12 01/03/18 Lisinopril [Prinivil 2.5 mg Tablet] 2.5 mg PO DAILY 01/03/18 Tolterodine Tartrate [Tolterodine Tartrate ER] 2 mg PO DAILY 01/03/18 Transfer Medications: Current Medications Acetaminophen (Tylenol 325 Mg Tablet) 650 mg PO Q4HP PRN PRN Reason: FOR PAIN OR TEMP Stop: 02/01/18 20:27 Last Admin: 01/07/18 22:09 Dose: 650 mg Al Hydrox/Mg Hydrox/Simethicone (Maalox Plus Susp 30 Udcup) 30 ml PO Q6HP PRN PRN Reason: HEARTBURN Stop: 02/01/18 20:27 Albuterol/Ipratropium (Duoneb 3 Ml Ampul) 3 ml NEB [id number] PRN PRN Reason: SHORTNESS OF BREATH Stop: 02/01/18 20:27 Amiodarone HCl (Cordarone 200 Mg Tablet) 200 mg PO DAILY DORITA Stop: 02/03/18 09:59 Last Admin: 01/07/18 09:05 Dose: 200 mg Carvedilol (Coreg 6.25 Mg Tablet) 6.25 mg PO Q12 DORITA Stop: 02/02/18 21:59 Last Admin: 01/07/18 21:13 Dose: 6.25 mg Docusate Sodium (Colace 100 Mg Capsule) 100 mg PO BID DORITA Stop: 02/02/18 09:59 Last Admin: 01/07/18 17:38 Dose: Not Given Fentanyl Citrate (Sublimaze Inj/Pf 100 Mcg/2 Ml Ampule) 75 mcg IV Q2HP PRN PRN Reason: FOR PAIN Stop: 01/09/18 20:30 Last Admin: 01/05/18 06:19 Dose: 75 mcg Heparin Sodium (Porcine) (Heparin Inj 5,000 Units/Ml 1 Ml Syringe) 5,000 unit SUBCUT Q8 DORITA Stop: 02/01/18 21:59 Last Admin: 01/08/18 04:35 Dose: Not Given Lisinopril (Prinivil 5 Mg Tablet) 2.5 mg PO DAILY DORITA Stop: 02/03/18 09:59 Last Admin: 01/07/18 08:51 Dose: Not Given Magnesium Hydroxide (Milk Of Magnesia 30 Ml Udcup) 30 ml PO HSP PRN PRN Reason: FOR CONSTIPATION Stop: 02/01/18 20:27 Last Admin: 01/05/18 21:45 Dose: 30 ml Oxycodone HCl (Oxy-Ir 5 Mg Tablet) 5 mg PO Q6HP PRN PRN Reason: FOR PAIN Stop: 01/11/18 14:50 Last Admin: 01/06/18 04:49 Dose: 5 mg Tolterodine Tartrate (Detrol 1 Mg Tablet) 1 mg PO Q12 DORITA Stop: 02/02/18 21:59 Last Admin: 01/07/18 21:12 Dose: 1 mg Warfarin Sodium (Coumadin 2 Mg Tablet) 2 mg PO QAM DORITA Stop: 02/06/18 07:59 Last Admin: 01/07/18 09:05 Dose: 2 mg - Allergies Allergies/Adverse Reactions: No Known Allergies Allergy (Verified 01/02/18 21:28) - Diet/Activity Discharge Diet: As Tolerated Hospital Course Hospital Course: The patient is an 87-year-old female with a past medical history significant for arthritis, atrial fibrillation status post pacemaker placement on Coumadin who was admitted on 01/02/18 for left hip fracture secondary to mechanical fall. Minimal risk for cardiopulmonary complications of orthopedic surgery given the patient's underlying fitness (reports that she ambulate 2 miles daily). goal for INR of less than 1.4 prior to surgery. On arrival, the patient's INR was subtherapeutic at 1.9. The patient received vitamin K 5 mg p.o. in the emergency department and FFP prior to surgery. 01/04/2018 patient underwent ORIF of L hip. No intraoperative complications. Postoperatively, the patient's Hgb trending down to 7.7, transfused 2U PRBC. Patient denies dizziness, fatigue, or SOB. Asymptomatic anemia likely due to postoperative blood loss. Following transfusion, the patient's Hgb remained stable > 8.0. The patient has a history of AFIB. Presently, she is in a paced and rate controlled rhythm. Patient's chadsvasc score is 3. She was restarted on coumadin 24hrs after surgery. INR remained subtherapeutic (1.37) in the days following surgery. Her Coumadin dosing was changed from 2mg MWFSu/1mg TRSa to 2mg daily. Acute rehab facility will need to follow INR closely due to recent increase in coumadin dosing. The patient's [employer] is Dr. Campbell Reddy (Cardiology [facility]). Discharge summary faxed to their office. Physical Exam Vital Signs: Temp Pulse Resp BP Pulse Ox 98.0 F 72 16 105/61 98 01/08/18 03:21 01/08/18 03:21 01/08/18 03:21 01/08/18 03:21 01/08/18 03:21 Intake & Output 01/06/18 01/07/18 01/08/18 06:59 06:59 06:59 Intake Total 2768 680 1145 Output Total 700 1400 Balance 2068 -720 1145 Weight 69.7 kg 70.6 kg 70.9 kg Results Laboratory Results: 01/08/18 05:44 01/07/18 01/07/18 01/08/18 08:16 08:16 05:44 WBC 8.4 6.5 RBC 2.73 L 2.65 L Hgb 8.7 L 8.4 L Hct 25.1 L 24.8 L MCV 92 94 MCH 31.8 31.9 MCHC 34.5 34.1 RDW 14.8 H 14.7 H Plt Count 112 L 114 L Sodium 137.9 Potassium 3.6 Chloride 100 Carbon Dioxide 28 Anion Gap 10 BUN 21 H Creatinine 0.65 Est GFR ( Amer) > 60 Est GFR (Non-Af Amer) > 60 Glucose 120 H Calcium 7.9 L Phosphorus 2.3 L Magnesium 2.3 01/03/18 01/03/18 01/03/18 02:29 02:29 08:00 Creatine Kinase 49 49 CK-MB (CK-2) 0.65 Troponin I < 0.012 01/03/18 08:00 Creatine Kinase CK-MB (CK-2) 0.57 Troponin I < 0.012 Impressions: Femur X-Ray 01/02/18 18:13 IMPRESSION: COMMINUTED INTERTROCHANTERIC FRACTURE OF THE PROXIMAL FEMUR WITH DISPLACEMENT AND ANGULATION Cervical Spine CT 01/02/18 18:57 IMPRESSION: 1. No acute fracture at the thoracic cervical spine. Multilevel degenerative changes. 2. A 1.4 cm hypodense nodule at the left lobe of the thyroid gland. This can be better evaluated with dedicated ultrasound. Head CT 01/02/18 18:57 IMPRESSION: No acute intracranial hemorrhage or depressed calvarial fracture. EVIDENCE OF ACUTE STROKE: NO. Pelvis X-Ray 01/02/18 18:57 IMPRESSION: Displaced, intertrochanteric fracture of the proximal left femur. Severe degenerative changes at the right hip. Osteopenia. Chest X-Ray 01/02/18 19:26 IMPRESSION: Cardiomegaly. Emphysema. No consolidation or pleural effusion. Fluoroscopy 01/04/18 00:00 IMPRESSION: IMAGE(S) OBTAINED DURING PROCEDURE. Hip X-Ray 01/04/18 00:00
[2018-01-08] MEDS: CARVEDILOL 6.25 MG TABLET PO SCH (07:46)
[2018-01-08] MEDS: ACETAMINOPHEN 325 MG TABLET PO PRN (07:46)
[2018-01-08] MEDS: AMIODARONE HCL 200 MG TABLET PO SCH (07:47)
[2018-01-08] MEDS: TOLTERODINE TARTRATE 1 MG TABLET PO SCH (07:47)
[2018-01-08] MEDS: DOCUSATE SODIUM 100 MG CAPSULE PO SCH (07:47)
[2018-01-08] MEDS: LISINOPRIL 5 MG TABLET PO SCH (07:47)
[2018-01-08] MEDS: WARFARIN SODIUM 2 MG TABLET PO SCH (07:48)
== END 2018-01-08 08:45 | disposition short-term general hospital (02) | DRG 481 ==
LOC: ER 18:07 → EH 20:46 → 4N 22:22
PROVIDERS: ADMIT Internal Medicine; ATTEND Internal Medicine
PROC: 0QS706Z Reposition Left Upper Femur with Intramedullary Internal Fixation Device, Open Approach (ICD-10-PCS; principal; 2018-01-04 13:45)
PROC: 30233N1 Transfusion of Nonautologous Red Blood Cells into Peripheral Vein, Percutaneous Approach (ICD-10-PCS; 2018-01-05)
DX: S72.142A Displaced intertrochanteric fracture of left femur, initial encounter for closed fracture (principal); D62 Acute posthemorrhagic anemia; I48.2 Chronic atrial fibrillation; M19.90 Unspecified osteoarthritis, unspecified site; S09.90XA Unspecified injury of head, initial encounter; W01.198A Fall on same level from slipping, tripping and stumbling with subsequent striking against other object, initial encounter; Y92.9 Unspecified place or not applicable; Z79.01 Long term (current) use of anticoagulants; Z95.0 Presence of cardiac pacemaker
CPT/HCPCS: 01230; 36415; 36430; 51702; 70450; 71045; 72125; 72170; 80048; 80053; 82550; 82553; 83735; 84100; 84484; 85025; 85027; 85610; 85730; 86850; 86900; 86901; 86920; 93005; 93010; 94799; 99284; G8978-GP; G8979-GP; G8987-GO; G8988-GO; J0131; J0690; J1644; J2250; J2270; J2704; J3010; J3490; J7030; J7120; P9016